=== PATIENT | male | born 1935 | race Caucasian/White ===

== ENCOUNTER 2017-01-30 11:40 | Inpatient (IN) | payer OTHER, MEDICARE ==
[~2017-01-30] VITALS: Ht 180.3 cm; Wt 93.0 kg
[~2017-01-30 11:40] MED LIST: AMLODIPINE BESY10 M1 PO; AMOXIL500 MG PO; AMPICILLIN500 MG PO; CEFAZOLIN SODIUM1 G1 IV; COLACE100 M1 PO; COUMADIN5 M2 PO; FERROUS SULFAT325 M3 PO; FLOMAX(MONOGRA0.4 MG PO; FLOMAX0.4 M1 PO; FUROSEMIDE20 M1 PO; GLUCOPHAGE1000 M1 PO; HYDRODIURIL 2525 MG PO; JANUVIA 100MG100 MG PO; KEFLEX 250MG C250 MG PO; KEFLEX500 MG PO; LASIX20 MG PO; LISINOPRIL10 MG PO; LISINOPRIL20 M1 PO; LISINOPRIL20 MG PO; MASON NATURAL2000 IU PO; METFORMIN1000 MG PO; METOPROLOL SUCC50 M1 PO; METOPROLOL SUCC50 M2 PO; MIRALAX17 G1 PO; MULTI-DAY VITA1 EACH PO; MULTIVITAMINS1 EAC3 PO; NORVASC 5MG TAB5 MG PO; PERCOCET 5-3251 EACH PO; POTASSIUM CHLO20 ME2 PO; PRAVACHOL80 M1 PO; PRAVASTATIN SOD80 MG PO; SENOKOT-S TABL1 EACH PO; STROVITE ONE1 TAB PO; TOPROL XL 100100 MG PO; TRADJENTA5 M1 PO; TRADJENTA5 MG PO; VITAMIN D1000 IU PO; VITAMIN D1000 UNIT PO; XARELTO20 M2 PO; XARELTO20 MG PO
--- NOTE | 2017-01-30 11:43 | NUR ---
INFORMED WAITING PERFORMED.
--- NOTE | 2017-01-30 12:17 | NUR ---
PT TO TRIAGE WITH FEVERS, CHILLS AND PAIN TO LEFT KNEE. PT LEFT GOODMAN AND ANKLE IS +2 EDEMATOUS RIGHT IS TRACE EDEMA. PT DENIES CHEST PAIN.
[2017-01-30 12:46] LABS: ABSOLUTE BASOPHIL COUNT 0 /CUMM (0.0-0.2); ABSOLUTE EOSINOPHIL COUNT 0 /CUMM (0.0-0.7); ABSOLUTE GRANULOCYTE CT 7.6 /CUMM (1.4-6.5); ABSOLUTE LYMPH COUNT 0.2 /CUMM (1.2-3.4); ABSOLUTE MONOCYTE COUNT 0.2 /CUMM (0.10-0.60); BASOPHIL % 0 % (0.0-2.0); EOSINOPHIL % 0 % (0-5); HEMATOCRIT 36.9 % (42-52); MEAN CORPUSCULAR HGB 29.9 PG (27.0-31.0); MEAN CORPUSCULAR HGB CONC 33.7 G/DL (33.0-37.0); MEAN CORPUSCULAR VOLUME 88.7 FL (80.0-94.0); MEAN PLATELET VOLUME 9.8 FL (7.4-10.4); PLATELET COUNT 97 /CUMM (130-400); RBC DISTRIBUTION WIDTH 14.1 % (11.5-14.5); RED BLOOD CELL CT 4.16 /CUMM (4.70-6.10); WHITE BLOOD CELL COUNT 8.1 /CUMM (4.8-10.8)
[2017-01-30 13:07] LABS: GRANULOCYTE % 94.3 % (42.2-75.2)
--- NOTE | 2017-01-30 13:50 | ED UPPER/LOWER EXTREMITY COMPL ---
History of Present Illness General Chief Complaint: General Adult Stated Complaint: SENT BY FOR CELLULITIS Source: patient, family, old records Exam Limitations: no limitations Vital Signs & Intake/Output Vital Signs & Intake/Output Vital Signs Date Time Temp Pulse Resp B/P B/P Pulse O2 O2 Flow FiO2 Mean Ox Delivery Rate 01/31 0608 101.9 88 22 138/72 92 Nasal 3.0L Cannula 01/31 0215 100.4 68 22 118/62 95 Nasal 3.0L Cannula 01/31 0016 92 Nasal 3.0L Cannula 01/31 0000 92 Room Air 01/30 2345 102.9 01/30 2345 102.9 93 33 148/80 91 Nasal 3.0L Cannula 01/30 1914 98.0 82 20 128/64 93 Room Air 01/30 1817 99.8 83 16 107/55 94 Room Air 01/30 1709 101.0 01/30 1708 101.0 96 20 132/87 93 Room Air Room Air 01/30 1527 100.4 94 20 139/58 95 Room Air 01/30 1328 99.7 93 16 113/65 96 Room Air Room Air 01/30 1216 100.3 100 16 102/57 98 Room Air Room Air ED Intake and Output 01/31 0000 01/30 1200 Intake Total 1350 Output Total Balance 1350 Intake, IV 1300 Intake, Oral 50 Patient 205 lb Weight Allergies Coded Allergies: No Known Allergies (01/30/17) Reconcile Medications Amlodipine Besylate (Norvasc) 10 MG TABLET 1 TAB PO DAILY htn (Reported) Cholecalciferol (Vitamin D3) (Vitamin D) 1,000 UNIT TABLET 1 TAB PO DAILY SUPPLEMENT (Reported) Docusate Sodium (Colace) 100 MG CAPSULE 1 CAP PO BID constipation Ferrous Sulfate 325 MG TABLET 1 TAB PO BID anemia available over the counter Furosemide 20 MG TABLET 3 TAB PO QAM DIURETIC (Reported) Linagliptin (Tradjenta) 5 MG TABLET 1 TAB PO DAILY DIABETES (Reported) Lisinopril (Prinivil) 20 MG TABLET 1 TAB PO QPM HTN (Reported) Lisinopril 20 MG TABLET 1 TAB PO QAM BP (Reported) Metformin HCl (Glucophage) 1,000 MG TABLET 1 TAB PO BID GLUCOSE CONTROL ( Reported) Metoprolol Succinate 50 MG TAB.ER.24H 1 TAB PO DAILY HEART/BP (Reported) Multivitamin,Ther and Minerals (Multivitamins With Minerals Hp) 1 EACH CAPSULE 1 CAP PO QAM SUPPLEMENT (Reported) Oxycodone HCl/Acetaminophen (Percocet 5-325 MG Tablet) 1 EACH TABLET 2 TAB PO Q6P PRN PAIN Oxycodone HCl/Acetaminophen (Percocet 5-325 MG Tablet) 1 EACH TABLET 1-2 TAB PO Q4-6 PRN pain Polyethylene Glycol 3350 (Miralax) 17 GM POWD.PACK 1 PAC PO DAILY PRN CONSTIPATION dissolve in water Potassium Chloride 20 MEQ TAB.ER.PRT 1 TAB PO QAM SUPPLEMENT (Reported) Pravastatin Sodium (Pravachol) 80 MG TABLET 1 TAB PO QPM CHOLESTEROL ( Reported) Sennosides/Docusate Sodium (Senokot-S Tablet) 1 EACH TABLET 1 TAB PO BID PRN CONSTIPATION Tamsulosin HCl (Flomax) 0.4 MG CAP.ER.24H 1 CAP PO DAILY PROSTATE (Reported) Triage Note: PT TO TRIAGE WITH FEVERS, CHILLS AND PAIN TO LEFT KNEE. PT LEFT GOODMAN AND ANKLE IS +2 EDEMATOUS RIGHT IS TRACE EDEMA. PT DENIES CHEST PAIN. Triage Nurses Notes Reviewed? yes Onset: Abrupt Duration: hour(s): (few) Timing: single episode today Severity: moderate, severe Pain/Injury Location: Left: Leg, Knee. Method of Injury: none No Modifying Factors: none Associated Symptoms: swelling, FEVER HPI: This is an 82-year-old male history of A. fib, CHF, hypertension, also with history of previous left infected knee presents to the chief complaint of sudden onset of pain in the knee since yesterday. The patient had shaking chills and a fever of 101 at 3 AM this morning. Patient complains of pain from his left knee down. He states symptoms were similar to previous infection in 2016. The patient had a septic arthroplastic joint replaced. Denies any chest pain or shortness of breath. Urine was dark. He was sent by his primary care doctor here to the ER for evaluation and admission. Past History Travel History Traveled to [place] past 21 day No Medical History Any Pertinent Medical History? 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 Hx Contributory? No Review of Systems Review of Systems Constitutional: Reports: chills, fever. EENTM: Reports: no symptoms. Respiratory: Denies: cough, short of breath. Cardiovascular: Denies: chest pain, palpitations. Gastrointestinal/Abdominal: Reports: no symptoms. Genitourinary: Reports: no symptoms. Musculoskeletal: Reports: joint pain. Denies: joint swelling. Skin: Reports: erythema. Neurological/Psychological: Reports: no symptoms. Hematologic/Endocrine: Denies: bruising, bleeding, polyuria, polydipsia. Immunological: Reports: no symptoms. All Other Systems: Reviewed and Negative Physical Exam Physical Exam General Appearance: well developed/nourished, alert, awake, mild distress, moderate distress Head: atraumatic Eyes: Bilateral: PERRL, EOMI. Ears, Nose, Throat: normal pharynx, normal ENT inspection, hearing grossly normal Neck: normal inspection, supple Cardiovascular/Respiratory: regular rate/rhythm Peripheral Pulses: 2+ radial (R), 2+ radial (L) Back: normal inspection Leg Left: swelling, pain, soft tissue tenderness, ERYTHEMA Leg Right: normal range of motion, normal inspection Hip Left: normal range of motion, normal inspection Hip Right: normal range of motion, normal inspection Knee Left: swelling, tenderness Knee Right: normal range of motion, normal inspection Foot Left: normal inspection, normal range of motion Foot Right: normal inspection, normal range of motion Neurologic/Tendon: normal sensation, normal motor functions, normal tendon functions Skin: intact, normal color, warm/dry Lymphatic: no anterior cervical brian ED Sepsis Exam Date of Focused Sepsis Exam: 01/30/17 Time of Focused Sepsis Exam: 1413 Sepsis Cardiac Exam: Tachycardia Sepsis Resp Exam: CTA Sepsis Cap Refill Exam: <2 Sec Sepsis Peripheral Pulse Exam: Normal Sepsis Peripheral Pulse Location: Radial Sepsis Skin Color Exam: Normal for Ethnicity Skin Temp/Moisture Exam: Warm/Dry Progress Differential Diagnosis: cellulitis, septic arthritis Plan of Care: Orders Procedure Date/time Status CBC WITHOUT DIFFERENTIAL 01/31 0600 Active BASIC ELECTROLYTES PLUS BUN&CR 01/31 0600 Active LACTIC ACID 01/31 0225 Complete OXYGEN SETUP (GEN) 01/31 0017 Complete Regular Diet 01/30 D Active TRC EVALUATION (GEN) 01/30 2337 Active LACTIC ACID 01/30 2325 Complete Wound Care/Dressing 01/30 2243 Active LACTIC ACID 01/30 2038 Complete Vital Signs 01/30 1910 Complete Teach/Educate 01/30 1910 Active Pain Treatment and Response 01/30 1910 Active Nutritional Intake, Monitor 01/30 1910 Active Isolation 01/30 1910 Active Intake & Output 01/30 1910 Complete Patient Care Conference 01/30 1910 Active Activity/Ambulation 01/30 1910 Active LACTIC ACID 01/30 1800 Complete Add-on Test (ER Only) 01/30 1722 Active FingerStick- Glucose 01/30 1709 Active SYNOVIAL FLUID CELL COUNT 01/30 1644 Active CULTURE,BODY FLUID 01/30 1640 Active Code Status 01/30 1553 Active LACTIC ACID 01/30 1521 Complete Pathway - chart 01/30 1457 Active Patient Data 01/30 1457 Active Admit to inpatient 01/30 1454 Active Vital Signs 01/30 1454 Active Code Status 01/30 1454 Complete Intake & Output 01/30 1419 Active EKG 01/30 1401 Active Add-on Test (ER Only) 01/30 1302 Active BLOOD CULTURE 01/30 1302 Active WESTERGREN SED RATE 01/30 1302 Complete PROTHROMBIN TIME 01/30 1235 Complete C-REACTIVE PROTEIN 01/30 1235 Complete LACTIC ACID 01/30 1221 Complete COMPREHENSIVE METABOLIC PANEL 01/30 1218 Complete CBC WITHOUT DIFFERENTIAL 01/30 1218 Complete House Staff 01/30 UNK Active Lab Add-on Test 01/30 UNK Active VTE Mechanical Prophylaxis 01/30 UNK Active Vital Signs 01/30 UNK Complete Current Medications Sig/Willi Start time Last Medication Dose Stop Time Status Admin Amlodipine Besylate 10 MG QAM 01/31 1000 CAN (Norvasc) Amlodipine Besylate 10 MG DAILY 01/31 1000 AC (Norvasc) Cholecalciferol 1,000 IU DAILY 01/31 1000 AC (Vitamin D) Furosemide 60 MG QAM 01/31 1000 AC (Lasix) Lisinopril 40 MG DAILY 01/31 1000 AC (Prinivil) Metoprolol Succinate 50 MG DAILY 01/31 1000 AC (Toprol Xl) Pravastatin Sodium 80 MG DAILY 01/31 1000 AC (Pravachol) Tamsulosin HCl 0.4 MG DAILY 01/31 1000 AC (Flomax) Apixaban 2.5 MG BID 01/30 2200 AC 01/30 (Eliquis) 223 Docusate Sodium 100 MG BID 01/30 2200 AC 01/30 (Colace) 223 Ferrous Sulfate 325 MG BID 01/300 AC 01/30 (Feosol) 223 Vancomycin HCl 1,500 MG 01/30 AC 01/30 Sodium Chloride 250 ML 223 (Normal Saline 0.9%) Ampicillin Sodium/ 3,000 MG Q6H 01/30 2100 CAN Sulbactam Sodium (Unasyn) Sodium Chloride 100 ML (Normal Saline 0.9%) Oxycodone/ 1 TAB Q6P PRN 01/30 2030 AC 01/30 Acetaminophen 2025 (Percocet) Sodium Chloride 1,000 ML Q10H 01/30 1745 AC 01/30 (Normal Saline 0.9%) 195 Insulin Aspart 0 TIDAC 01/30 1700 AC 01/30 (NovoLOG) 1815 Acetaminophen 650 MG Q6P PRN 01/30 1500 AC (Tylenol) Acetaminophen 1,000 MG Q6P PRN 01/30 1500 AC 01/30 (Ofirmev) 2345 Laboratory Tests 01/31/17 0220: Lactic Acid 1.5 01/30/17 2330: Lactic Acid 2.5 H 01/30/17 2024: Lactic Acid 3.6 H 01/30/17 1855: Lactic Acid 3.4 H 01/30/17 1644: Lymphocytes 1, % Normal PMNs 96, Fluid WBC , Fld Total RBCs Counted 01/30/17 1534: Lactic Acid 4.2 H 01/30/17 1337: ESR Westergren 9 01/30/17 1235: Lactic Acid 2.8 H 01/30/17 1235: Anion Gap 13, Estimated GFR > 60, BUN/Creatinine Ratio 23.6, Glucose 148 H, Calcium 9.0, Total Bilirubin 1.5 H, AST 26, ALT 33, Alkaline Phosphatase 44, C- Reactive Prot, Quant 3.8 H, Total Protein 6.5, Albumin 4.0, Globulin 2.5, Albumin/Globulin Ratio 1.6, PT 12.8 H, INR 1.22 H, CBC w Diff MAN DIFF ORDERED , RBC 4.16 L, MCV 88.7, MCH 29.9, RDW 14.1, MPV 9.8, Gran % 94.3 H, Lymphocytes % 3.1 L, Monocytes % 2.6, Eosinophils % 0, Basophils % 0 L, Absolute Granulocytes 7.6 H, Segmented Neutrophils 74, Band Neutrophils 18 H, Absolute Lymphocytes 0.2 L, Lymphocytes 5 L, Monocytes 3, Absolute Monocytes 0.2, Absolute Eosinophils 0, Absolute Basophils 0, Platelet Estimate DECREASED, Hypochromic-Microcytic 2+, Poikilocytosis 1+, Anisocytosis 1+, Ovalocytes 1+, PUBS MCHC 33.7 Microbiology 01/30 1643 BODY FLUID: Body Fluid Culture - RES 01/30 1643 BODY FLUID: Gram Stain - RES 01/30 1426 BLOOD: Blood Culture - RECD 01/30 1337 BLOOD: Blood Culture - RECD 2 PM IV ABX, FLUIDS, MORPHINE ORDERED. LABS SENT IN TRIAGE. ELEVATED LACTIC. DR JEFFERY PAGED FOR CONSULT. MAY NEED ARTHROCENTESISI. ARTHROCENTESIS PERFORMED. PATIENT ADMITTED TO MEDICAL SERVICE. ORTHOPEDIC CONSULTATION PENDING. (PHILIPP ODELL,JORDANA) Departure Departure Disposition: STILL A PATIENT Condition: Stable Clinical Impression Primary Impression: Left leg cellulitis Referrals: KATHY AMAYA DO (PCP/Family) Departure Forms: Customer Survey General Discharge Information Admission Note Spoke With: RUFINA JIMENEZ MD Documentation of Exam: Documentation of any treatments & extenuating circumstances including Concerns Regarding Discharge (functional status, medication knowledge or non-compliance, living conditions, etc.) that warrant an admission rather than observation: [IV ABS, PAIN CONTROL, F/U BLOOD AND ARTHROCENTESIS CULTURES, ORTHOPEID CONSULT DR JEFFERY CALLED] Procedures Additional Procedures Additional Procedures: LEFT KNEE ARTHROCENTESIS 2 ML LIDOCAINE WITH EPI FOR ANESTHESIA 6 CC MURKY/TURBID FLUID ASPIRATED FROM LATERAL SUPERIOR BORDER OF PATELLA PATIENT TOLERATED PROCEDURE WELL
--- NOTE | 2017-01-30 14:04 | NUR ---
EVALUATED BY DR. SEGAL.
--- NOTE | 2017-01-30 14:23 | NUR ---
LINE EST #20 TO [facility]. NS BOLUS HUNG AND PT MEDICATED PER EMAR.
--- NOTE | 2017-01-30 14:29 | NUR ---
2ND SET OF BLOOD CULTURES DRAWN AND SENT TO THE LAB
--- NOTE | 2017-01-30 15:26 | History & Physical ---
TERRY FINCH MD 01/30/17 1525: General Information and HPI MD Statement: I have seen and personally examined FEMI HOWELL and documented this H&P. The patient is a 82 year old M who presented with a patient stated chief complaint of [fed by the primary-care physician for cellulitisr]. History of Present Illness: This is an 82-year-old diabetic man with atrial fibrillation, maintained on eLIQUIS, status post left knee replacement 2.5 YEARS prior to admission, right knee replacement 3 years, status post left knee septic arthritis in January 2016, and at that time was treated with 6 weeks of cefazolin, with replacement of prosthetic joint and antibiotic spacer placement which was later removed and replaced with new prosthetic joint, History of recurrent cellulitis, over the past 4-5 years, usually involving the left leg leg, with Group B strep isolated from the blood on a previous hospitalization in 2014 , at which time he had a left leg cellulitis in the setting of a recent venous closure,. The patient was doing fine until last night at around 3 AM he started having shakes and chills and rigors. He went to see his primary care physician and was seen by the on-call doctor who recommended to come to the emergency department for further evaluation. The patient noticed that his left leg is more swollen and is read as compared to the right side is mostly in the cuevas area. The patient also noticed that he had more swelling on his left knee.He denies any changes in joint mobility . No H/o recent trauma or any recent travels or camping or travel to [facility].He saw Jamar Whiteside MD, his regular orthopedics 2 weeks prior coming to the emergency department who did not have any recommendations. Allergies/Medications Allergies: Coded Allergies: No Known Allergies (01/30/17) Home Med list Amlodipine Besylate (Norvasc) 10 MG TABLET 1 TAB PO DAILY htn (Reported) Cholecalciferol (Vitamin D3) (Vitamin D) 1,000 UNIT TABLET 1 TAB PO DAILY SUPPLEMENT (Reported) Docusate Sodium (Colace) 100 MG CAPSULE 1 CAP PO BID constipation Ferrous Sulfate 325 MG TABLET 1 TAB PO BID anemia available over the counter Furosemide 20 MG TABLET 3 TAB PO QAM DIURETIC (Reported) Linagliptin (Tradjenta) 5 MG TABLET 1 TAB PO DAILY DIABETES (Reported) Lisinopril (Prinivil) 20 MG TABLET 1 TAB PO QPM HTN (Reported) Lisinopril 20 MG TABLET 1 TAB PO QAM BP (Reported) Metformin HCl (Glucophage) 1,000 MG TABLET 1 TAB PO BID GLUCOSE CONTROL ( Reported) Metoprolol Succinate 50 MG TAB.ER.24H 1 TAB PO DAILY HEART/BP (Reported) Multivitamin,Ther and Minerals (Multivitamins With Minerals Hp) 1 EACH CAPSULE 1 CAP PO QAM SUPPLEMENT (Reported) Oxycodone HCl/Acetaminophen (Percocet 5-325 MG Tablet) 1 EACH TABLET 2 TAB PO Q6P PRN PAIN Oxycodone HCl/Acetaminophen (Percocet 5-325 MG Tablet) 1 EACH TABLET 1-2 TAB PO Q4-6 PRN pain Polyethylene Glycol 3350 (Miralax) 17 GM POWD.PACK 1 PAC PO DAILY PRN CONSTIPATION dissolve in water Potassium Chloride 20 MEQ TAB.ER.PRT 1 TAB PO QAM SUPPLEMENT (Reported) Pravastatin Sodium (Pravachol) 80 MG TABLET 1 TAB PO QPM CHOLESTEROL ( Reported) Sennosides/Docusate Sodium (Senokot-S Tablet) 1 EACH TABLET 1 TAB PO BID PRN CONSTIPATION Tamsulosin HCl (Flomax) 0.4 MG CAP.ER.24H 1 CAP PO DAILY PROSTATE (Reported) Past History Travel History Traveled to [place] past 21 day No Medical History Neurological: NONE EENT: NONE Cardiovascular: AFIB, CHF, hypertension, hyperlipidemia Respiratory: NONE Gastrointestinal: NONE Hepatic: NONE Renal: benign prost hyperplasia, nephrolithiasis Musculoskeletal: CELLULITISof right leg 4 times, last one was in August 2014 Psychiatric: NONE Endocrine: diabetes Blood Disorders: NONE Cancer(s): melanoma, (REMOVED) 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 Other Medical Hx: Psoriasis History of MRSA: No History of VRE: No History of CDIFF: No Pneumonia Vaccine: 06/20/15 Surgical History Surgical History: 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 Psychosocial History Who Do You Live With? self Services at Home: None Primary Language: Ivorian ETOH Use: denies use Illicit Drug Use: denies illicit drug use Functional Ability ADLs Independent: dressing, eating, toileting, bathing. Ambulation: independent IADLs Independent: shopping, housework, finances, food prep, telephone, transportation , medication admin. Review of Systems Review of Systems Constitutional: Reports: see HPI. EENTM: Reports: see HPI. Musculoskeletal: Reports: see HPI, joint pain, joint swelling. Denies: muscle stiffness, neck pain. Skin: Reports: rash. Neurological/Psychological: Reports: anxiety. Hematologic/Endocrine: Reports: see HPI, bruising. Exam & Diagnostic Data Last 24 Hrs of Vital Signs/I&O Vital Signs Date Time Temp Pulse Resp B/P B/P Pulse O2 O2 Flow FiO2 Mean Ox Delivery Rate 01/30 1527 100.4 94 20 139/58 95 Room Air 01/30 1328 99.7 93 16 113/65 96 Room Air Room Air 01/30 1216 100.3 100 16 102/57 98 Room Air Room Air Intake & Output 01/30 1600 01/30 0800 01/30 0000 Intake Total 1000 Output Total Balance 1000 Intake, IV 1000 Patient 205 lb Weight Physical Exam General Appearance Alert, Oriented X3, Cooperative, No Acute Distress Skin No Rashes, No Breakdown, REDNESS AND SWELLING IN THE LEFT CUEVAS Skin Temp/Moisture Exam: Warm/Dry Lymphatic Axillary nl, Cervical nl Cardiovascular Normal S1, Normal S2 Lungs Clear to Auscultation, Normal Air Movement Abdomen Normal Bowel Sounds, Soft, No Tenderness Neurological Normal Gait, Normal Speech, Strength at 5/5 X4 Ext Extremities LEFT LOWER SWELLING AND REDNESS, left knee swelling and warmth. Vascular Normal Pulses, Pulses Symmetrical Sepsis Peripheral Pulse Location: Dorsalis Pedis Sepsis Peripheral Pulse Exam: Normal Sepsis Cap Refill Exam: <2 Sec Body Front and Back (Adult) 1) LEFT CUEVAS SWELLING AND REDNESS 2) LWFT LEG SWELIING Assessment/Plan Assessment: Is an 82-year-old male with a past medical history of recurrent left leg cellulitis, with most recent episode 9 months prior to admission, status post venous closure of the left leg status post left knee arthroplasty and septic arthritis status post long-term antibiotics course and joint replacement in 2015 now admitted with recurrent cellulitis . Initial temperature of 100.4, blood pressure 113/65, saturation of 96% on room air, heart rate of 100, respiration rate of 16 WBC of 8.1, (band of 18 )hemoglobin of 12.4 hematocrit of 36.9,Low platelets of 96 lactic acid of 2.8, creatinine 1.1, EKG shows atrial fibrillation with normal ventriculULAR RESPONSE3 Assessment 1. Sepsis secondary to cellulitis 2. Recurrent cellulitis of the left leg, with suspicion of left septic arthritis considering increased swelling of the left knee. The patient had normal movement at the knee joint. He also exhibited normal pulses peripherally.Septic arthritis is very likely in this case. Prosthetic joint infection is promoted by the development of a biofilm ( coalescence of bacteria) on the artificial joint surface; biofilms are resistant to treatment both because of lack of perfusion and because biofilm bacteria develop antimicrobial resistance as a consequence of their limited exposure to treatment agents. MRSA and GBHS are likely the causatve organisms. 3. History of atrial fibrillation on Eliquis and metoprolol 4. History of [id number] diabetes mellitus(metformin and Janument) 5. Previous history of septic arthritis 6.Thrmobocytopenia -likely secondary infectious. Plan Admit the patient to general medicine floor Do a arthrocentesis of the left knee(i.e. marisabel Whiteside MD she is in the middle of the surgery (no eleiquis dose today in am). I am worried about recurrent left knee arthritis as the drained fluid from arthrocentesis was purulent in nature. Unfortunately the patient already received 1 dose of IV Unasyn, Continue with IV fluids NS a@ 100 cc/hr Can Continue with IV unasyn but ideally also need coverage for MRSA and as the patient previous culture in May 2015 GREW GBS.Consider switching to Vancmycin and will discuss with ID. The patient ideally needs joint wash out like last admission.(dr Aguilarinformed ) Continue with other home medications but will HOLD Eliquis until arthrocentesis and also hold BP meds until more stable in the am. NovoLog SLIDING scale for diabetes control and accu checks Leg elevation ID consult in the morning( I already spoke to Dr Yoder in the ER but will officilay consult him in am) DVT prophylaxis at all times with Eliquis once a arthrocentesis done DNR/DNI As Ranked By This Provider Problem List: 1. Left leg cellulitis Core Measures/Miscellaneous Acute Coronary Syndrome ACS Diagnosis: No Cerebrovascular Accident CVA/TIA Diagnosis: No Congestive Heart Failure CHF Diagnosis: No Venous Thromboembolism VTE Risk Factors: Acute medical illness, Age > 40 No [facility] VTE prophylaxis d/t: VTE low risk, No contraindications No VTE Pharm Prophylaxis d/t: VTE low risk, No contraindications VTE Diagnosis: No VTE Type: NONE VTE Confirmed by (Test): NONE Severe Sepsis Severe Sepsis Present: Yes BC x2: Yes Lactic Acid x2: Yes IV ABX Broad Spectrum: Yes NS/LR Started: Yes Septic Shock Septic Shock Present: No Miscellaneous Documentation Attending Case Discussed With: RUFINA JIMENEZ MD Primary Care Physician: KATHY AMAYA DO Patient sees these Specialists dr torres Level of Patient Care: General Medicine RUFINA JIMENEZ MD 01/30/172021: Attending MD Review Statement Attending Statement Attending MD Statement: examined this patient, discuss w/resident/PA/SAW MAKER, agreed w/resident/PA/SAW MAKER, reviewed EMR data (avail) Attending Assessment/Plan: 82M PMH atrial fibrillation on Eliquis, left knee replacement 2.5 YEARS prior to admission, right knee replacement 3 years ago, status post left knee septic arthritis in January 2016, and at that time was treated with 6 weeks of cefazolin, with replacement of prosthetic joint and antibiotic spacer placement which was later removed and replaced with new prosthetic joint with cultures growing Group B streptococcous, presents with left lower extremity cellulitis with edema, erythema, and pain extending up to left knee. Left knee arthrocentesis performed in ED returning milky white fluid. Febrile 101, normal BP, normal WBC , lactate 2.8. Patient has no complaints other than mild LLE discomfort. Plan - Admit to general medicine - Start Unasyn - Follow arthrocentesis culture and blood cultures - Orthopedic and ID consults - Continue home medications - IV hydration - Trend lactate until normal - Monitor fluid status - DVT PPx
[2017-01-30 15:55] LABS: PT 12.8 SEC (9.4-12.5)
[2017-01-30] MEDS ORDERED: NORVASC10 M1 PO (16:14)
[2017-01-30] MEDS ORDERED: PRINIVIL20 M1 PO (16:15)
--- NOTE | 2017-01-30 16:36 | NUR ---
BED 203
--- NOTE | 2017-01-30 16:46 | NUR ---
ATTEMPTED TO GIVE REPORT TO RN, UNABLE TO TAKE REPORT AT THIS TIME.
--- NOTE | 2017-01-30 16:57 | NUR ---
CRITICAL TEST RESULTS [id number] FEMI HOWELL S 82 M TESTS AND RESULTS: LACTIC 4.2 Results received and read back by: DEBBIE SHEA Results received date and time: 01/30/17 8030 The following provider was notified of the results, and read the results back: AMADO IN ROOM WITH PT Notified date and time: 01/30/17 at
--- NOTE | 2017-01-30 17:12 | NUR ---
DINNER TRAY ORDERED.
--- NOTE | 2017-01-30 17:59 | Cons- Orthopedic ---
General Information and HPI Consulting Request Date of Consult: 01/30/17 Requested By: RUFINA JIMENEZ MD Reason for Consult: Left leg pain and swelling Source of Information: patient, family Exam Limitations: no limitations History of Present Illness: Patient is an 82-year-old man who has a history of a left total knee arthroplasty done by Dr. Pinto several years ago. Unfortunately a proximally one year ago he developed a septic joint and had to have total knee arthroplasty explantation followed by antibiotic cement spacer and following reimplantation by myself. Patient had been doing fairly well overall but last night he developed swelling and pain in his left lower extremity including the left knee. He also developed fevers. He was brought to the emergency room and had evaluation. Aspiration of the knee was done patient also received antibiotics in the emergency room. Allergies/Medications Allergies: Coded Allergies: No Known Allergies (01/30/17) Home Med List: Amlodipine Besylate (Norvasc) 10 MG TABLET 1 TAB PO DAILY htn (Reported) Cholecalciferol (Vitamin D3) (Vitamin D) 1,000 UNIT TABLET 1 TAB PO DAILY SUPPLEMENT (Reported) Docusate Sodium (Colace) 100 MG CAPSULE 1 CAP PO BID constipation Ferrous Sulfate 325 MG TABLET 1 TAB PO BID anemia available over the counter Furosemide 20 MG TABLET 3 TAB PO QAM DIURETIC (Reported) Linagliptin (Tradjenta) 5 MG TABLET 1 TAB PO DAILY DIABETES (Reported) Lisinopril (Prinivil) 20 MG TABLET 1 TAB PO QPM HTN (Reported) Lisinopril 20 MG TABLET 1 TAB PO QAM BP (Reported) Metformin HCl (Glucophage) 1,000 MG TABLET 1 TAB PO BID GLUCOSE CONTROL ( Reported) Metoprolol Succinate 50 MG TAB.ER.24H 1 TAB PO DAILY HEART/BP (Reported) Multivitamin,Ther and Minerals (Multivitamins With Minerals Hp) 1 EACH CAPSULE 1 CAP PO QAM SUPPLEMENT (Reported) Oxycodone HCl/Acetaminophen (Percocet 5-325 MG Tablet) 1 EACH TABLET 2 TAB PO Q6P PRN PAIN Oxycodone HCl/Acetaminophen (Percocet 5-325 MG Tablet) 1 EACH TABLET 1-2 TAB PO Q4-6 PRN pain Polyethylene Glycol 3350 (Miralax) 17 GM POWD.PACK 1 PAC PO DAILY PRN CONSTIPATION dissolve in water Potassium Chloride 20 MEQ TAB.ER.PRT 1 TAB PO QAM SUPPLEMENT (Reported) Pravastatin Sodium (Pravachol) 80 MG TABLET 1 TAB PO QPM CHOLESTEROL ( Reported) Sennosides/Docusate Sodium (Senokot-S Tablet) 1 EACH TABLET 1 TAB PO BID PRN CONSTIPATION Tamsulosin HCl (Flomax) 0.4 MG CAP.ER.24H 1 CAP PO DAILY PROSTATE (Reported) Past History Medical History Neurological: NONE EENT: NONE Cardiovascular: AFIB, CHF, hypertension, hyperlipidemia Respiratory: NONE Gastrointestinal: NONE Hepatic: NONE Renal: benign prost hyperplasia, nephrolithiasis Musculoskeletal: CELLULITISof right leg 4 times, last one was in August 2014 Psychiatric: NONE Endocrine: diabetes Blood Disorders: NONE Cancer(s): melanoma, (REMOVED) 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 Psychosocial History Who Do You Live With? self Services at Home: None Primary Language: Bolivian ETOH Use: denies use Illicit Drug Use: denies illicit drug use Functional Ability ADLs Independent: dressing, eating, toileting, bathing. Ambulation: independent IADLs Independent: shopping, housework, finances, food prep, telephone, transportation , medication admin. Exam & Diagnostic Data Vital Signs and I&O Vital Signs Date Time Temp Pulse Resp B/P B/P Pulse O2 O2 Flow FiO2 Mean Ox Delivery Rate 01/30 1709 101.0 01/30 1708 101.0 96 20 132/87 93 Room Air Room Air 01/30 1527 100.4 94 20 139/58 95 Room Air 01/30 1328 99.7 93 16 113/65 96 Room Air Room Air 01/30 1216 100.3 100 16 102/57 98 Room Air Room Air Intake & Output 01/30 1600 01/30 0800 01/30 0000 01/29 1600 01/29 0800 01/29 0000 Intake Total 1000 Output Total Balance 1000 Intake, IV 1000 Patient 205 lb Weight Physical Exam: Patient is alert and appropriate. He has moderate leg swelling and erythema along the lateral aspect of his calf and lower extremity. His left lower extremity is warm to touch including his knee. Moderate knee effusion. No instability. Calf exam revealed no palpable cords. Pulses are palpable distally and symmetric. Neuro intact grossly Last 24 Hours of Labs: Laboratory Tests 01/30 01/30 01/30 01/30 1644 1534 1337 1235 Chemistry Lactic Acid (0.7 - 2.1 mmol/L) 4.2 H 2.8 H Hematology Lymphocytes (%) 1 % Normal PMNs (%) 96 ESR Westergren (0 - 10 MM) 9 Other Body Source Fluid WBC (0 - 5 /CUMM) Fld Total RBCs Counted (0 /CUMM) 01/30 1235 Chemistry Sodium (137 - 145 mmol/L) 136 L Potassium (3.5 - 5.1 mmol/L) 3.7 Chloride (98 - 107 mmol/L) 102 Carbon Dioxide (22 - 30 mmol/L) 21 L Anion Gap (5 - 16) 13 BUN (9 - 20 mg/dL) 26 H Creatinine (0.7 - 1.2 mg/dL) 1.1 Estimated GFR (>60 ml/min) > 60 BUN/Creatinine Ratio (7 - 25 %) 23.6 Glucose (65 - 99 mg/dL) 148 H Calcium (8.4 - 10.2 mg/dL) 9.0 Total Bilirubin (0.2 - 1.3 mg/dL) 1.5 H AST (17 - 59 U/L) 26 ALT (21 - 72 U/L) 33 Alkaline Phosphatase (< 127 U/L) 44 C-Reactive Prot, Quant (<1.0 mg/dL) 3.8 H Total Protein (6.3 - 8.2 g/dL) 6.5 Albumin (3.5 - 5.0 g/dL) 4.0 Globulin (1.9 - 4.2 gm/dL) 2.5 Albumin/Globulin Ratio (1.1 - 2.2 %) 1.6 Coagulation PT (9.4 - 12.5 SEC) 12.8 H INR (0.90 - 1.17) 1.22 H Hematology CBC w Diff MAN DIFF ORDERED WBC (4.8 - 10.8 /CUMM) 8.1 RBC (4.70 - 6.10 /CUMM) 4.16 L Hgb (14.0 - 18.0 G/DL) 12.4 L Hct (42 - 52 %) 36.9 L MCV (80.0 - 94.0 FL) 88.7 MCH (27.0 - 31.0 PG) 29.9 RDW (11.5 - 14.5 %) 14.1 Plt Count (130 - 400 /CUMM) 97 L MPV (7.4 - 10.4 FL) 9.8 Gran % (42.2 - 75.2 %) 94.3 H Lymphocytes % (20.5 - 51.1 %) 3.1 L Monocytes % (1.7 - 9.3 %) 2.6 Eosinophils % (0 - 5 %) 0 Basophils % (0.0 - 2.0 %) 0 L Absolute Granulocytes (1.4 - 6.5 /CUMM) 7.6 H Segmented Neutrophils (42.2 - 75.2 %) 74 Band Neutrophils (0.0 - 5.0 %) 18 H Absolute Lymphocytes (1.2 - 3.4 /CUMM) 0.2 L Lymphocytes (20.5 - 51.1 %) 5 L Monocytes (1.7 - 9.3 %) 3 Absolute Monocytes (0.10 - 0.60 /CUMM) 0.2 Absolute Eosinophils (0.0 - 0.7 /CUMM) 0 Absolute Basophils (0.0 - 0.2 /CUMM) 0 Platelet Estimate (ADEQUATE) DECREASED Hypochromic-Microcytic 2+ Poikilocytosis 1+ Anisocytosis 1+ Ovalocytes 1+ PUBS MCHC (33.0 - 37.0 G/DL) 33.7 Assessment/Plan Assessment/Plan Cellulitis left lower extremity/possible recurrent septic joint. We will await the results from the aspiration and then proceed accordingly. Patient already started on Unasyn. Discussed with resident and with attending in the emergency room- Consult Acknowledgment - Thank you for your consult request. 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
--- NOTE | 2017-01-30 18:18 | NUR ---
MEDICATED WITH INSULIN AND DILAUDID PER eMAR AND VSS, TEMP IMPROVING AT 99.8
[2017-01-30 19:14] VITALS: BP 128/64
--- NOTE | 2017-01-30 19:59 | NUR ---
PT ADMITTED TO FLOOR VIA STRETHCER, ORIENTED TO ROOM, CALL REEDER, STAFF ETC. ALERT AND ORIENTED X 3. RA. LCTA. REDNESS, WARMTH, SWELLING TO LEFT LEG. + PEDAL PULSES. VSS. FLUIDS RUNNING ORDERED. FAMILY AT BEDSIDE. WILL CONITNUE TO MONITOR.
--- NOTE | 2017-01-30 20:24 | Admission Certification ---
Admission Certification Certification Statement - As attending physician, I certify that at the time of - admission, based on clinical presentation, severity of - symptoms, need for further diagnostic testing and - therapeutic interventions, and risk of adverse outcomes - without in-hospital treatment, in my clinical assessment, - this patient requires an acute hospital stay for a minimum - of two nights or longer. I have also considered psychsocial - factors such as support system, advanced age, financial - issues, cognitive issues, and failed out-patient treatments, - past re-admission history, safety of patient, and lack of - compliance as applicable. Specific rationale supporting this admission is: Septic arthritis of left knee with severe sepsis
--- NOTE | 2017-01-30 20:46 | Cons- Infect Disease ---
General Information and HPI Consulting Request Date of Consult: 01/30/17 Requested By: RUFINA JIMENEZ MD Reason for Consult: Rule out septic left knee prosthesis Source of Information: patient, family, old records History of Present Illness: This is an 82-year-old man with diabetes, atrial fibrillation, maintained on Eliquis, CHF, BPH, nephrolithiasis, with a history of recurrent cellulitis over the past 5 years, typically involving the right leg, with beta-hemolytic strep sepsis on several occasions, status post bilateral knee replacements, hospitalized one year prior to admission with an infected left knee prosthesis, requiring removal, with cultures negative, treated empirically with Cefazolin for 6 weeks, with replacement of the prosthesis 1 week later, with Vancomycin prophylaxis, status post left knee arthrocentesis 4 months postop because of swelling, with cell count revealing 4 white blood cells and with culture negative, treated with a ten-day course of Keflex with improvement, admitted today after presenting to the emergency room with the acute onset of fevers and chills overnight and pain and swelling of the left knee this morning. On admission he was febrile to 100.3. Laboratory data revealed a white blood cell count of 8000, with 74 segs and 18 bands, platelets 97,000, ESR 9, BUN/ creatinine 26 and 1.1, bilirubin 1.5, INR 1.22. He underwent a left knee arthrocentesis, which revealed cloudy fluid, which, unfortunately, clotted, preventing the lab from performing a cell count. The gram stain, however, reveals rare gram-positive cocci. This afternoon he spiked to 101. At present he notes some discomfort in the left knee. Allergies/Medications Allergies: Coded Allergies: No Known Allergies (01/30/17) Home Med List: Amlodipine Besylate (Norvasc) 10 MG TABLET 1 TAB PO DAILY htn (Reported) Cholecalciferol (Vitamin D3) (Vitamin D) 1,000 UNIT TABLET 1 TAB PO DAILY SUPPLEMENT (Reported) Docusate Sodium (Colace) 100 MG CAPSULE 1 CAP PO BID constipation Ferrous Sulfate 325 MG TABLET 1 TAB PO BID anemia available over the counter Furosemide 20 MG TABLET 3 TAB PO QAM DIURETIC (Reported) Linagliptin (Tradjenta) 5 MG TABLET 1 TAB PO DAILY DIABETES (Reported) Lisinopril (Prinivil) 20 MG TABLET 1 TAB PO QPM HTN (Reported) Lisinopril 20 MG TABLET 1 TAB PO QAM BP (Reported) Metformin HCl (Glucophage) 1,000 MG TABLET 1 TAB PO BID GLUCOSE CONTROL ( Reported) Metoprolol Succinate 50 MG TAB.ER.24H 1 TAB PO DAILY HEART/BP (Reported) Multivitamin,Ther and Minerals (Multivitamins With Minerals Hp) 1 EACH CAPSULE 1 CAP PO QAM SUPPLEMENT (Reported) Oxycodone HCl/Acetaminophen (Percocet 5-325 MG Tablet) 1 EACH TABLET 2 TAB PO Q6P PRN PAIN Oxycodone HCl/Acetaminophen (Percocet 5-325 MG Tablet) 1 EACH TABLET 1-2 TAB PO Q4-6 PRN pain Polyethylene Glycol 3350 (Miralax) 17 GM POWD.PACK 1 PAC PO DAILY PRN CONSTIPATION dissolve in water Potassium Chloride 20 MEQ TAB.ER.PRT 1 TAB PO QAM SUPPLEMENT (Reported) Pravastatin Sodium (Pravachol) 80 MG TABLET 1 TAB PO QPM CHOLESTEROL ( Reported) Sennosides/Docusate Sodium (Senokot-S Tablet) 1 EACH TABLET 1 TAB PO BID PRN CONSTIPATION Tamsulosin HCl (Flomax) 0.4 MG CAP.ER.24H 1 CAP PO DAILY PROSTATE (Reported) Past History Travel History Traveled to [place] past 21 day No Medical History Neurological: NONE EENT: NONE Cardiovascular: AFIB, CHF, hypertension, hyperlipidemia Respiratory: NONE Gastrointestinal: NONE Hepatic: NONE Renal: benign prost hyperplasia, nephrolithiasis Musculoskeletal: CELLULITIS of right leg 4 times, last one was in August 2014 Psychiatric: NONE Endocrine: diabetes Blood Disorders: NONE Cancer(s): melanoma, (REMOVED) 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 Psychosocial History Who Do You Live With? self Services at Home: None Primary Language: Upper Sorbian Smoking Status: Never Smoked ETOH Use: denies use Illicit Drug Use: denies illicit drug use Functional Ability ADLs Independent: dressing, eating, toileting, bathing. Ambulation: independent IADLs Independent: shopping, housework, finances, food prep, telephone, transportation , medication admin. ECHO Results (as available) EF% 55 Review of Systems Review of Systems Respiratory: Reports: cough (today). All Other Systems: Reviewed and Negative Exam & Diagnostic Data Last 24 Hrs of Vital Signs/I&O Vital Signs Date Time Temp Pulse Resp B/P B/P Pulse O2 O2 Flow FiO2 Mean Ox Delivery Rate 01/30 1914 98.0 82 20 128/64 93 Room Air 01/30 1817 99.8 83 16 107/55 94 Room Air 01/30 1709 101.0 01/30 1708 101.0 96 20 132/87 93 Room Air Room Air 01/30 1527 100.4 94 20 139/58 95 Room Air 01/30 1328 99.7 93 16 113/65 96 Room Air Room Air 01/30 1216 100.3 100 16 102/57 98 Room Air Room Air Intake & Output 01/30 1600 01/30 0800 01/30 0000 Intake Total 1000 Output Total Balance 1000 Intake, IV 1000 Patient 205 lb Weight Physical Exam Other Physical Findings: He is awake and alert in no acute distress. MAXIMUM TEMPERATURE 101. Skin reveals no rash. HEENT exam is negative. Neck is supple with no adenopathy. Lungs are clear. Heart irregular rhythm with no murmur. Abdomen is soft, nontender with positive bowel sounds. Back no CVA tenderness. Extremities left knee swelling, warmth and mild tenderness, with decreased range of motion and with fluid draining from the recent site of the arthrocentesis; erythema below the left knee to the ankle, warm to touch with mild swelling; right leg with chronic venous stasis changes. Neuro is without focality. Last 24 Hours of Lab Results: Laboratory Tests 01/30 1855 1644 1534 1337 Chemistry Lactic Acid (0.7 - 2.1 mmol/L) Pending 3.4 H 4.2 H Hematology Lymphocytes (%) 1 % Normal PMNs (%) 96 ESR Westergren (0 - 10 MM) 9 Other Body Source Fluid WBC (0 - 5 /CUMM) Fld Total RBCs Counted (0 /CUMM) 01/30 01/30 1235 1235 Chemistry Sodium (137 - 145 mmol/L) 136 L Potassium (3.5 - 5.1 mmol/L) 3.7 Chloride (98 - 107 mmol/L) 102 Carbon Dioxide (22 - 30 mmol/L) 21 L Anion Gap (5 - 16) 13 BUN (9 - 20 mg/dL) 26 H Creatinine (0.7 - 1.2 mg/dL) 1.1 Estimated GFR (>60 ml/min) > 60 BUN/Creatinine Ratio (7 - 25 %) 23.6 Glucose (65 - 99 mg/dL) 148 H Lactic Acid (0.7 - 2.1 mmol/L) 2.8 H Calcium (8.4 - 10.2 mg/dL) 9.0 Total Bilirubin (0.2 - 1.3 mg/dL) 1.5 H AST (17 - 59 U/L) 26 ALT (21 - 72 U/L) 33 Alkaline Phosphatase (< 127 U/L) 44 C-Reactive Prot, Quant (<1.0 mg/dL) 3.8 H Total Protein (6.3 - 8.2 g/dL) 6.5 Albumin (3.5 - 5.0 g/dL) 4.0 Globulin (1.9 - 4.2 gm/dL) 2.5 Albumin/Globulin Ratio (1.1 - 2.2 %) 1.6 Coagulation PT (9.4 - 12.5 SEC) 12.8 H INR (0.90 - 1.17) 1.22 H Hematology CBC w Diff MAN DIFF ORDERED WBC (4.8 - 10.8 /CUMM) 8.1 RBC (4.70 - 6.10 /CUMM) 4.16 L Hgb (14.0 - 18.0 G/DL) 12.4 L Hct (42 - 52 %) 36.9 L MCV (80.0 - 94.0 FL) 88.7 MCH (27.0 - 31.0 PG) 29.9 RDW (11.5 - 14.5 %) 14.1 Plt Count (130 - 400 /CUMM) 97 L MPV (7.4 - 10.4 FL) 9.8 Gran % (42.2 - 75.2 %) 94.3 H Lymphocytes % (20.5 - 51.1 %) 3.1 L Monocytes % (1.7 - 9.3 %) 2.6 Eosinophils % (0 - 5 %) 0 Basophils % (0.0 - 2.0 %) 0 L Absolute Granulocytes (1.4 - 6.5 /CUMM) 7.6 H Segmented Neutrophils (42.2 - 75.2 %) 74 Band Neutrophils (0.0 - 5.0 %) 18 H Absolute Lymphocytes (1.2 - 3.4 /CUMM) 0.2 L Lymphocytes (20.5 - 51.1 %) 5 L Monocytes (1.7 - 9.3 %) 3 Absolute Monocytes (0.10 - 0.60 /CUMM) 0.2 Absolute Eosinophils (0.0 - 0.7 /CUMM) 0 Absolute Basophils (0.0 - 0.2 /CUMM) 0 Platelet Estimate (ADEQUATE) DECREASED Hypochromic-Microcytic 2+ Poikilocytosis 1+ Anisocytosis 1+ Ovalocytes 1+ PUBS MCHC (33.0 - 37.0 G/DL) 33.7 Last 24 Hours of Bharat Results: Blood cultures 2 January 30 pending Left knee synovial fluid January 30 culture pending, with gram stain revealing many white blood cells and rare gram-positive cocci Assessment/Plan Assessment/Plan Impression: This is an 82-year-old man with a history of diabetes, atrial fibrillation, maintained on Eliquis, status post left knee replacement 2 and 1/2 years prior to admission, requiring removal and replacement one year prior to admission after developing an infection, treated empirically with 6 weeks of IV Cefazolin, with cultures negative, admitted today with the acute onset of fevers, chills and left knee inflammation, status post left knee arthrocentesis yielding cloudy fluid, with cell count unable to be performed, but with gram revealing rare gram -positive cocci. It appears that his prosthesis is infected and that he will require at least debridement and drainage in the OR. As his symptoms are acute an attempt at retention of the prosthesis would be reasonable, followed by a prolonged course (6 weeks) of antibiotics directed against the organism isolated. Possible etiologies include Staph aureus, including MRSA, and coag- negative Staph as well as streptococci (for example beta-hemolytic strep) and empiric antibiotics should be directed against these pathogens. His thrombocytopenia and elevated bilirubin are likely secondary to his acute infection. Suggestion: 1. Follow-up synovial fluid culture 2. Consider repeat left knee arthrocentesis if the synovial fluid culture is negative 3. Discontinue Unasyn 4. Begin Vancomycin 1.5 grams IV every 24 hours pending above Consult Acknowledgment - Thank you for your consult request.
[2017-01-30 23:45] VITALS: BP 148/80
--- NOTE | 2017-01-31 00:20 | NUR ---
NURSING NOTE: RESPIRATORY AT BEDSIDE EVALUATING PATIENT AT THIS TIME. INCREASED O2 TO 3L NC, O2 SAT 94-95% AT THIS TIME, LUNG SOUNDS CLEAR, PATIENT IN NO ACUTE DISTRESS. WILL CONTINUE TO MONITOR.
--- NOTE | 2017-01-31 00:30 | NUR ---
NURSING NOTE: LATE ENTRY FOR 2329. DURING REPORT WITH EVENING NURSE PATIENT BECAME SOB AND VISIBLY SHIVERING, PATIENT IS A&OX3, CALM AND REPORTS HE "FEELS FINE, BUT COLD." VS 148/80, HR 93, ORAL TEMP 98.3, RECTAL TEMP 102.9, RR 33, O2 89% ON ROOM AIR. PATIENT PLACED ON 2L O2, O2 SAT 91%. MD ZARATE MADE AWARE OF ABOVE, RESPIRATORY MADE AWARE WELL. IMGEE ASSESSING PATIENT AT BEDSIDE, IV TYLENOL RUNNING PER MD, WHEN FINISHED IV VANCO AND IVF WILL CONTINUE. RESPIRATORY STATED THEY WILL BE IN TO SEE PATIENT SHORTLY. PATIENT RESTING IN BED, CALL LIGHT IN PLACE, BED LOW AND LOCKED. WILL CONTINUE TO MONITOR AND RECHECK VS @ 0200.
[2017-01-31 02:15] VITALS: BP 118/62
[2017-01-31 06:08] VITALS: BP 138/72
--- NOTE | 2017-01-31 07:13 | PN- Housestaff ---
JAHAIRA ODELL,KIM 01/31/17 0713: Subjective Follow-up For: Sepsis, 2/2 Left knee septic arthritis Complaints: no complaints Subjective: I followed up and examined the patient today. He is resting comfortably in bed, is not in distress, has his left knee elevated. His vitals have been stable, no overnight issues. BP has remained better since admission and fluid resuscitation. Review of Systems Constitutional: Reports: see HPI. Objective Last 24 Hrs of Vital Signs/I&O Vital Signs Date Time Temp Pulse Resp B/P B/P Pulse O2 O2 Flow FiO2 Mean Ox Delivery Rate 01/31 1755 100.0 01/31 1656 102.5 01/31 1628 102.5 01/31 1419 103.0 01/31 1411 103.0 01/31 1358 98.7 94 20 146/80 92 Nasal 3.0L Cannula 01/31 1026 70 124/72 01/31 1025 70 124/72 01/31 1024 70 124/72 01/31 1024 70 124/72 01/31 0944 Nasal 2.0L Cannula 01/31 0808 99.0 01/31 0800 92 Nasal 3.0L Cannula 01/31 0615 101.9 01/31 0608 101.9 88 22 138/72 92 Nasal 3.0L Cannula 01/31 0215 100.4 68 22 118/62 95 Nasal 3.0L Cannula 01/31 0016 92 Nasal 3.0L Cannula 01/31 0000 92 Room Air 01/30 2345 102.9 01/30 2345 102.9 93 33 148/80 91 Nasal 3.0L Cannula 01/30 1914 98.0 82 20 128/64 93 Room Air Intake & Output 01/31 1600 01/31 0800 01/31 0000 Intake Total 700 1280 350 Output Total 800 100 Balance -100 1180 350 Intake, IV 200 1040 300 Intake, Oral 500 240 50 Number 0 0 Bowel Movements Output, Urine 800 100 Patient 92.986 kg Weight Physical Exam General Appearance: Alert, Oriented X3, Cooperative, No Acute Distress, overweight Other Physical Findings: Skin No Rashes, No Breakdown, NO REDNESS OVER LEFT GOODMAN OR LEFT KNEE PRESENT DURING ADMISSION Skin Temp/Moisture Exam: Warm/Dry Lymphatic Axillary nl, Cervical nl Cardiovascular Normal S1, Normal S2 Lungs Clear to Auscultation, Normal Air Movement Abdomen Normal Bowel Sounds, Soft, No Tenderness Neurological Normal Speech, Strength at 5/5 X4 Ext, grossly intact Extremities LEFT LOWER tender, and BETTER today, Right knee normal Vascular Normal Pulses, Pulses Symmetrical Current Medications: Current Medications Sig/Willi Start time Last Medication Dose Route Stop Time Status Admin Acetaminophen 650 MG Q6P PRN 01/30 1500 AC 01/31 PO 1656 Acetaminophen 1,000 MG Q6P PRN 01/30 1500 AC 01/31 IV 1419 Amlodipine Besylate 10 MG DAILY 01/31 1000 AC 01/31 PO 1025 Ampicillin 2,000 MG Q6H 01/31 1800 AC 01/31 Sodium Chloride 100 ML IV 1815 Ampicillin 2,000 MG Q6H 01/31 1600 DC Sodium Chloride 100 ML IV Ampicillin Sodium/ 3,000 MG Q6H 01/30 2100 CAN Sulbactam Sodium IV Sodium Chloride 100 ML Apixaban 2.5 MG BID 01/30 2200 DC 01/30 PO 2232 Cholecalciferol 1,000 IU 2200 01/31 2200 AC PO Cholecalciferol 1,000 IU DAILY 01/31 1000 DC PO Docusate Sodium 100 MG BID 01/30 2200 AC 01/31 PO 1024 Ferrous Sulfate 325 MG BID 01/30 2200 AC 01/31 PO 1338 Furosemide 60 MG QAM 01/31 1000 AC 01/31 PO 1025 Hydromorphone HCl 1 MG Q4P PRN 01/31 1030 AC IV Insulin Aspart 0 TIDAC 01/30 1700 AC 01/31 SC 1657 Lisinopril 40 MG DAILY 01/31 1000 AC 01/31 PO 1024 Metoprolol Succinate 50 MG DAILY 01/31 1000 AC 01/31 PO 1024 Oxycodone/ 1 TAB Q6P PRN 01/30 2030 AC 01/31 Acetaminophen PO 0815 Polyethylene Glycol 17 GM DAILY 01/31 1030 AC 01/31 PO 1339 Pravastatin Sodium 80 MG 2200 01/31 2200 AC PO Pravastatin Sodium 80 MG DAILY 01/31 1000 DC PO Senna/Docusate Sodium 1 TAB BID 01/31 1024 AC 01/31 PO 1339 Sodium Chloride 1,000 ML Q10H 01/30 1745 DC 01/31 IV 0832 Sodium Chloride 1,000 ML ONCE ONE 01/30 1630 DC 01/30 IV 01/31 0549 1711 Tamsulosin HCl 0.4 MG DAILY 01/31 1000 AC 01/31 PO 1026 Vancomycin HCl 1,500 MG 2200 01/300 DC 01/30 Sodium Chloride 250 ML IV 2230 Last 24 Hrs of Lab/Bharat Results Last 24 Hrs of Labs/Mics: Laboratory Tests 01/31/17 0653: Anion Gap 11, Estimated GFR > 60, BUN/Creatinine Ratio 25.5 H, Total Bilirubin 1.2, Direct Bilirubin 0.6 H, AST 29, ALT 33, Alkaline Phosphatase 37, Total Protein 5.5 L, Albumin 3.2 L, CBC w Diff MAN DIFF ORDERED, RBC 3.84 L, MCV 89.4, MCH 29.6, RDW 15.1 H, MPV 10.4, Gran % 94.0 H, Lymphocytes % 3.7 L, Monocytes % 2.3, Eosinophils % 0, Basophils % 0 L, Absolute Granulocytes 8.7 H , Segmented Neutrophils 62, Band Neutrophils 31 H, Absolute Lymphocytes 0.3 L, Lymphocytes 4 L, Monocytes 2, Absolute Monocytes 0.2, Absolute Eosinophils 0, Basophils 1, Absolute Basophils 0, Anisocytosis 1+, PUBS MCHC 33.1 01/31/17 0220: Lactic Acid 1.5 01/30/17 2330: Lactic Acid 2.5 H 01/30/172023: Lactic Acid 3.6 H Assessment/Plan Assessment: 82-year-old male with past medical history of atrial fibrillation on Eliquis, hypertension, hyperlipidemia, recurrent cellulitis, left knee replacement, followed by left knee septic arthritis requiring antibiotics and replacement of hardware, diabetes not on insulin, presented to the emergency department with sudden onset of fever, sweating, left knee pain/swelling/redness starting . He is currently being managed in the general medical floor for the following issues: #Sepsis, secondary to left septic arthritis Patient's typical history, physical examination at presentation, WBC of 8.1 with bandemia of 18, and lactic acidosis gives a diagnosis of sepsis. Septic arthritis has been confirmed by the presence of bacteria seen from the aspirate done in the emergency department. * ID consultation appreciated. Patient was initially placed on Unasyn, changed to vancomycin pending culture/Gram stain but is now on ampicillin after the initial test shows group B beta Streptococcus. * Orthopedic consultation appreciated. Patient will require washout/open surgical procedure for the left knee as soon as possible. Awaiting orthopedic consultation note today, especially regarding possible surgical procedure tomorrow. Patient has been kept nothing by mouth from midnight in anticipation. * I spoke with patient's regular hairspring vibrator Dr. Clemente, who mentioned to me that his regular dose of Eliquis can be held safely before surgery starting today and has to be resumed 2-3 days after the surgery depending on the patient' s condition. He also mentioned that the reduced dose of 2.5mg BID is because he had an episode of hemorrhagic knee effusion after his last episode of septic arthritis. His plan was to escalate anticoagulation to full dose of Eliquis, but will not be done during this admission, and rather as an outpatient later. * His lactic acid is back to normal at 1.5, IV fluids discontinued and the patient is eating and drinking properly by mouth. #Diabetes mellitus Patient is on insulin sliding scale, regular Accu-Cheks and on diabetic diet. #Rest of his home medication has been continued. #DVT prophylaxis was Eliquis until last night. Currently with ALPS. #Diet: diabetic diet #CODE STATUS is DNR/DNI Problem List: 1. Septic arthritis of knee, left 2. Diabetes 3. HTN (hypertension) 4. HLD (hyperlipidemia) Pain Ratin Pain Location: left knee Pain Goal: Pain 4 or less Pain Plan: prn Tomorrow's Labs & Rationales: CBC, GALIP DOROTHEA ODELL,[facility] 01/31/17 1135: Attending MD Review Statement Attending Statement Attending MD Statement: examined this patient, discuss w/resident/PA/CAMERA MECHANIC, agreed w/resident/PA/CAMERA MECHANIC, discussed with family, reviewed EMR data (avail), discussed with nursing, reviewed images Attending Assessment/Plan: 82-year-old male past medical history of A. fib on Eliquis, left knee prosthesis with prosthetic infection requiring removal of the prosthesis and 6 weeks of IV antibiotics. This new prosthesis is about a-year-old old and now he comes in with a septic arthritis. Was tapped in the ER yesterday and the fluid is growing strep. Initially started on Vanco empirically to cover for staph and strep including coag negative staph but now we can probably narrow the antibiotics. He had evidence of SIRS with a high white count and fever. At this point will hold the Eliquis and contact cardiology regarding whether bridging will be needed or not. We will also contact Jamar Komninakas, MD as he'll need to go to the OR to get the joint washed out and treatment of prosthetic joint septic arthritis.
[2017-01-31 09:11] LABS: ABSOLUTE BASOPHIL COUNT 0 /CUMM (0.0-0.2); ABSOLUTE EOSINOPHIL COUNT 0 /CUMM (0.0-0.7); ABSOLUTE GRANULOCYTE CT 8.7 /CUMM (1.4-6.5); ABSOLUTE LYMPH COUNT 0.3 /CUMM (1.2-3.4); ABSOLUTE MONOCYTE COUNT 0.2 /CUMM (0.10-0.60); BASOPHIL % 0 % (0.0-2.0); EOSINOPHIL % 0 % (0-5); HEMATOCRIT 34.3 % (42-52); MEAN CORPUSCULAR HGB 29.6 PG (27.0-31.0); MEAN CORPUSCULAR HGB CONC 33.1 G/DL (33.0-37.0); MEAN CORPUSCULAR VOLUME 89.4 FL (80.0-94.0); MEAN PLATELET VOLUME 10.4 FL (7.4-10.4); RBC DISTRIBUTION WIDTH 15.1 % (11.5-14.5); RED BLOOD CELL CT 3.84 /CUMM (4.70-6.10); WHITE BLOOD CELL COUNT 9.3 /CUMM (4.8-10.8)
[2017-01-31 11:11] LABS: PLATELET COUNT 73 /CUMM (130-400)
--- NOTE | 2017-01-31 13:02 | PN- Infect Dx ---
Subjective Subjective: MAXIMUM TEMPERATURE 102.9. He notes some discomfort in the left knee. Objective Last 24 Hrs of Vital Signs/I&O Vital Signs Date Time Temp Pulse Resp B/P B/P Pulse O2 O2 Flow FiO2 Mean Ox Delivery Rate 01/31 1026 70 124/72 01/31 1025 70 124/72 01/31 1024 70 124/72 01/31 1024 70 124/72 01/31 0944 Nasal 2.0L Cannula 01/31 0808 99.0 01/31 0615 101.9 01/31 0608 101.9 88 22 138/72 92 Nasal 3.0L Cannula 01/31 0215 100.4 68 22 118/62 95 Nasal 3.0L Cannula 01/31 0016 92 Nasal 3.0L Cannula 01/31 0000 92 Room Air 01/30 2345 102.9 01/30 2345 102.9 93 33 148/80 91 Nasal 3.0L Cannula 01/30 1914 98.0 82 20 128/64 93 Room Air 01/30 1817 99.8 83 16 107/55 94 Room Air 01/30 1709 101.0 01/30 1708 101.0 96 20 132/87 93 Room Air Room Air 01/30 1527 100.4 94 20 139/58 95 Room Air 01/30 1328 99.7 93 16 113/65 96 Room Air Room Air Intake & Output 01/31 1600 01/31 0800 01/31 0000 Intake Total 1280 350 Output Total 200 100 Balance -200 1180 350 Intake, IV 1040 300 Intake, Oral 240 50 Number 0 Bowel Movements Output, Urine 200 100 Patient 205 lb Weight Physical Exam Other Physical Findings: He appears comfortable in no acute distress Skin diaphoretic Lungs bibasilar crackles Heart irregular rhythm with no murmur Extremities left knee swelling and warmth, with no erythema and no active drainage; decreased range of motion, with pain on movement; decreased erythema below the knee Results Last 24 Hours of Lab Results: Laboratory Tests 01/31 01/31 01/30 01/30 0653 0 2329 2023 Chemistry Sodium (137 - 145 mmol/L) 134 L Potassium (3.5 - 5.1 mmol/L) 4.3 Chloride (98 - 107 mmol/L) 103 Carbon Dioxide (22 - 30 mmol/L) 21 L Anion Gap (5 - 16) 11 BUN (9 - 20 mg/dL) 28 H Creatinine (0.7 - 1.2 mg/dL) 1.1 Estimated GFR (>60 ml/min) > 60 BUN/Creatinine Ratio (7 - 25 %) 25.5 H Lactic Acid (0.7 - 2.1 mmol/L) 1.5 2.5 H 3.6 H Total Bilirubin (0.2 - 1.3 mg/dL) 1.2 Direct Bilirubin (< 0.4 mg/dL) 0.6 H AST (17 - 59 U/L) 29 ALT (21 - 72 U/L) 33 Alkaline Phosphatase (< 127 U/L) 37 Total Protein (6.3 - 8.2 g/dL) 5.5 L Albumin (3.5 - 5.0 g/dL) 3.2 L Hematology CBC w Diff MAN DIFF ORDERED WBC (4.8 - 10.8 /CUMM) 9.3 RBC (4.70 - 6.10 /CUMM) 3.84 L Hgb (14.0 - 18.0 G/DL) 11.4 L Hct (42 - 52 %) 34.3 L MCV (80.0 - 94.0 FL) 89.4 MCH (27.0 - 31.0 PG) 29.6 RDW (11.5 - 14.5 %) 15.1 H Plt Count (130 - 400 /CUMM) 73 L MPV (7.4 - 10.4 FL) 10.4 Gran % (42.2 - 75.2 %) 94.0 H Lymphocytes % (20.5 - 51.1 %) 3.7 L Monocytes % (1.7 - 9.3 %) 2.3 Eosinophils % (0 - 5 %) 0 Basophils % (0.0 - 2.0 %) 0 L Absolute Granulocytes (1.4 - 6.5 /CUMM) 8.7 H Segmented Neutrophils (42.2 - 75.2 %) 62 Band Neutrophils (0.0 - 5.0 %) 31 H Absolute Lymphocytes (1.2 - 3.4 /CUMM) 0.3 L Lymphocytes (20.5 - 51.1 %) 4 L Monocytes (1.7 - 9.3 %) 2 Absolute Monocytes (0.10 - 0.60 /CUMM) 0.2 Absolute Eosinophils (0.0 - 0.7 /CUMM) 0 Basophils (0.0 - 2.0 %) 1 Absolute Basophils (0.0 - 0.2 /CUMM) 0 Anisocytosis 1+ PUBS MCHC (33.0 - 37.0 G/DL) 33.1 01/30 01/30 01/30 01/30 1855 1644 1534 1337 Chemistry Lactic Acid (0.7 - 2.1 mmol/L) 3.4 H 4.2 H Hematology Lymphocytes (%) 1 % Normal PMNs (%) 96 ESR Westergren (0 - 10 MM) 9 Other Body Source Fluid WBC (0 - 5 /CUMM) Fld Total RBCs Counted (0 /CUMM) Last 24 Hours of Bharat Results: Blood cultures January 30 negative Left knee synovial fluid culture January 30 positive for Group B strep Assessment/Plan Impression: Infected left knee prosthesis, with Group B strep isolated from the recent knee arthrocentesis. He remains febrile with a significant bandemia and with decreasing platelets consistent with sepsis. He will need debridement of the left knee but, as his symptoms were acute, he should be able to be managed with retention of the prosthesis followed by a six-week course of IV antibiotics, after which he will require a prolonged course (for example 6 months) of oral antibiotics. He has been somewhat tachypneic and, with bibasilar crackles, fluid overload should be ruled out. Suggestion: 1. Await orthopedic follow-up 2. Would obtain a chest x-ray 3. Discontinue Vancomycin 4. Will need a PICC 5. Begin Ampicillin 2 g IV every 6 hours
[2017-01-31 13:58] VITALS: BP 146/80
--- NOTE | 2017-01-31 15:12 | RADIOLOGY REPORT ---
EXAMINATION: XR CHEST CLINICAL INFORMATION: Crackles at lung bases. Concern for fluid overload. Septic. COMPARISON: Chest x-ray 01/07/2016, 12:28 PM TECHNIQUE: 2 views of the chest were obtained. 2:35 PM FINDINGS: There are small bilateral pleural effusions blunting the costophrenic angle posteriorly. Mild central vascular prominence increased since prior chest x-ray without overt pulmonary edema. No infiltrate. Heart size top normal. There is vascular wall calcifications of aorta. IMPRESSION: Small bilateral pleural effusions with mild central vascular prominence.
--- NOTE | 2017-01-31 16:33 | NUR ---
nursing note; pt temp rectally after iv tylenol is 102.5, previous rectal temp 103, video editing intern ashley aware, no further orders at this time, will cont to monitor
--- NOTE | 2017-01-31 16:54 | NUR ---
per news internship latrice ramirez to give 650 mg po tylenol at this time, will cont to monitor
[2017-01-31 23:09] VITALS: BP 125/56
--- NOTE | 2017-01-31 23:54 | Event Note ---
Event Note Event Note: Pt is NPO. Insulin changed to regular insulin NPO sliding scale. D51/2NS at 75ml/hr 1 bag ordered. 1Xtoradol given. I also changed the pain meds as he is getting a lot of acetaminophen - Discontinued tylenol po - Discontinued perocet - IV tylenol q8p mild pain/fever - Roxicodone for moderate pain - Dilaudid for severe pain
[2017-02-01 07:42] VITALS: BP 131/81
[2017-02-01 08:18] LABS: ABSOLUTE BASOPHIL COUNT 0 /CUMM (0.0-0.2); ABSOLUTE EOSINOPHIL COUNT 0 /CUMM (0.0-0.7); ABSOLUTE GRANULOCYTE CT 6.1 /CUMM (1.4-6.5); ABSOLUTE LYMPH COUNT 0.5 /CUMM (1.2-3.4); ABSOLUTE MONOCYTE COUNT 0.2 /CUMM (0.10-0.60); BASOPHIL % 0.1 % (0.0-2.0); EOSINOPHIL % 0.2 % (0-5); GRANULOCYTE % 89.8 % (42.2-75.2); HEMATOCRIT 32.9 % (42-52); MEAN CORPUSCULAR HGB 29.8 PG (27.0-31.0); MEAN CORPUSCULAR HGB CONC 33.5 G/DL (33.0-37.0); MEAN CORPUSCULAR VOLUME 88.8 FL (80.0-94.0); MEAN PLATELET VOLUME 10.9 FL (7.4-10.4); PLATELET COUNT 57 /CUMM (130-400); RBC DISTRIBUTION WIDTH 14.6 % (11.5-14.5); RED BLOOD CELL CT 3.71 /CUMM (4.70-6.10); WHITE BLOOD CELL COUNT 6.8 /CUMM (4.8-10.8)
--- NOTE | 2017-02-01 10:05 | NUR ---
NURSING NOTE: SAMANTHA SWENSON RN PLACED PICC LINE TO YAHIR PER MD ORDER; PCXR ORDERED AT THIS TIME TO CONFIRM PLACEMENT. PT NOTED TO HAVE SLIGHT EXPIRATORY WHEEZE, WHEN ASKED IF PT HAS DIFFICULTY WHEEZING HE STATES "ITS JUST A LITTLE WHISPERY" PT DENIES COMPLAINTS. MANAGER PRESENTATION KIM MADE AWARE. 3L NC 95%
--- NOTE | 2017-02-01 10:50 | RADIOLOGY REPORT ---
EXAMINATION: XR PORTABLE CHEST CLINICAL INFORMATION: PICC line placement. COMPARISON: Yesterday, 01/31/2017. TECHNIQUE: Portable frontal view of the chest was obtained. FINDINGS: Since yesterday's study, a right-sided PICC line has been placed and its tip is in the SVC. There has been no other significant interval change. IMPRESSION: PICC line tip in SVC.
--- NOTE | 2017-02-01 11:19 | PN- Housestaff ---
Subjective Follow-up For: Sepsis, 2/2 Left knee septic arthritis Complaints: fever yesterday evening Subjective: I followed up and examined the patient today. He is resting comfortably in bed, is not in distress, has his left knee elevated. His vitals have been stable, except for fever yesterday evening, MAXIMUM TEMPERATURE of 103, no overnight issues. He is eagerly waiting for his left knee orthopedic surgery/washout later today. Review of Systems Constitutional: Reports: see HPI, fever. Objective Last 24 Hrs of Vital Signs/I&O Vital Signs Date Time Temp Pulse Resp B/P B/P Pulse O2 O2 Flow FiO2 Mean Ox Delivery Rate 02/01 1009 20 95 Nasal 3.0L Cannula 02/01 0927 122/78 02/01 0927 70 122/68 02/01 0800 94 Nasal 3.0L Cannula 02/01 0742 98.2 80 20 131/81 92 Nasal Cannula 02/01 0238 99.5 02/01 0100 101.1 02/01 0045 101.1 02/01 0000 93 Nasal 3.0L Cannula 01/31 2309 101.8 85 20 125/56 93 Nasal 2.0L Cannula 01/31 2255 101.8 01/31 1755 100.0 01/31 1656 102.5 01/31 1628 102.5 01/31 1600 Nasal 3.0L Cannula 01/31 1419 103.0 01/31 1411 103.0 01/31 1358 98.7 94 20 146/80 92 Nasal 3.0L Cannula Intake & Output 02/01 1600 02/01 0800 02/01 0000 Intake Total 600 1600 Output Total 626 350 5235 Balance -400 350 600 Intake, IV 600 800 Intake, Oral 800 Number 1 Bowel Movements Output, Urine 446 411 2074 Physical Exam General Appearance: Alert, Oriented X3, Cooperative, No Acute Distress, overweight Other Physical Findings: Skin No Rashes, No Breakdown, NO REDNESS OVER LEFT GOODMAN OR LEFT KNEE Skin Temp/Moisture Exam: Warm/Dry Lymphatic Cervical nl Cardiovascular Normal S1, Normal S2 Lungs Clear to Auscultation, Normal Air Movement Abdomen Normal Bowel Sounds, Soft, No Tenderness Neurological Grossly intact Extremities LEFT LOWER tender no more red, BETTER today, has a midline scar from previous surgery, Right knee normal Vascular Normal Pulses, Pulses Symmetrical Current Medications: Current Medications Sig/Willi Start time Last Medication Dose Route Stop Time Status Admin Acetaminophen 1,000 MG Q8P PRN 02/01 0045 AC IV Acetaminophen 650 MG .STK-MED ONE 01/31 2256 DC PO 01/31 225 Acetaminophen 650 MG .STK-MED ONE 01/31 1655 DC PO 01/31 1656 Acetaminophen 650 MG Q6P PRN 01/30 1500 DC 01/31 PO 2255 Acetaminophen 1,000 MG Q6P PRN 01/30 1500 DC 01/31 IV 1419 Amlodipine Besylate 10 MG DAILY 01/31 1000 AC 02/01 PO 09 Ampicillin 2,000 MG Q6H 01/31 1800 AC 02/01 Sodium Chloride 100 ML IV 0625 Ampicillin 2,000 MG Q6H 01/31 1600 DC Sodium Chloride 100 ML IV Cholecalciferol 1,000 IU 2200 01/31 2200 AC 01/31 PO 215 Dextrose/Sodium 1,000 ML Q13H 01/31 2345 AC 02/01 Chloride IV 02/01 1244 0055 Docusate Sodium 100 MG BID 01/30 2200 AC 01/31 PO 215 Ferrous Sulfate 325 MG BID 01/30 2200 AC 02/01 PO 09 Furosemide 60 MG QAM 01/31 1000 AC 02/01 PO 09 Hydromorphone HCl 1 MG Q4P PRN 01/31 1030 AC IV Insulin Aspart 0 TIDAC 01/30 1700 DC 01/31 SC 1657 Insulin Human Regular 2 UNITS .STK-MED ONE 02/01 0103 DC IV 02/01 0104 Insulin Human Regular 0 Q6 01/31 2359 AC 02/01 SC 0625 Ketorolac 30 MG .STK-MED ONE 02/01 0110 DC Tromethamine IM 02/01 0111 Ketorolac 15 MG .STK-MED ONE 02/01 0102 DC Tromethamine IM 02/01 0103 Ketorolac 30 MG ONCE ONE 01/31 2345 DC 02/01 Tromethamine IV 01/31 2346 0111 Lisinopril 40 MG DAILY 01/31 1000 AC 02/01 PO 09 Metoprolol Succinate 50 MG DAILY 01/31 1000 AC 02/01 PO 0927 Oxycodone HCl 5 MG Q6P PRN 02/01 0045 AC PO Oxycodone/ 1 TAB Q6P PRN 01/30 2030 DC 01/31 Acetaminophen PO 0815 Polyethylene Glycol 17 GM DAILY 01/31 1030 AC 01/31 PO 1339 Pravastatin Sodium 80 MG 01/31 2200 AC 01/31 PO 215 Senna/Docusate Sodium 1 TAB BID 01/31 1024 AC 01/31 PO 215 Tamsulosin HCl 0.4 MG DAILY 01/31 1000 AC 02/01 PO 0927 Vancomycin HCl 1,500 MG 01/30 220 DC 01/30 Sodium Chloride 250 ML IV 2230 Last 24 Hrs of Lab/Bharat Results Last 24 Hrs of Labs/Mics: Laboratory Tests 02/01/17 0615: Anion Gap 9, Estimated GFR > 60, BUN/Creatinine Ratio 27.0 H, CBC w Diff MAN DIFF ORDERED, RBC 3.71 L, MCV 88.8, MCH 29.8, RDW 14.6 H, MPV 10.9 H, Gran % 89.8 H, Lymphocytes % 6.9 L, Monocytes % 3.0, Eosinophils % 0.2, Basophils % 0.1, Absolute Granulocytes 6.1, Segmented Neutrophils 73, Band Neutrophils 16 H , Absolute Lymphocytes 0.5 L, Lymphocytes 9 L, Monocytes 2, Absolute Monocytes 0.2, Absolute Eosinophils 0, Absolute Basophils 0, Platelet Estimate DECREASED, Anisocytosis 1+, PUBS MCHC 33.5 Microbiology 02/01 1330 EXTREMITIE: Gross Specimen Examination - CAN Cancelled: ENTRY ERROR BY OR 02/01 1330 EXTREMITIE: Gram Stain - CAN Cancelled: ENTRY ERROR BY OR 02/01 1328 EXTREMITIE: Gross Specimen Examination - RECD 02/01 1328 EXTREMITIE: Gram Stain - RECD 02/01 1312 EXTREMITIE: Gross Specimen Examination - CAN Cancelled: BODY FLUID 02/01 1312 EXTREMITIE: Gram Stain - CAN Cancelled: BODY FLUID 02/01 1310 BODY FLUID: Body Fluid Culture - RECD 02/01 1310 BODY FLUID: Gram Stain - RECD Assessment/Plan Assessment: 82-year-old male with past medical history of atrial fibrillation on Eliquis, hypertension, hyperlipidemia, recurrent cellulitis, left knee replacement, followed by left knee septic arthritis requiring antibiotics and replacement of hardware, diabetes not on insulin, presented to the emergency department with sudden onset of fever, sweating, left knee pain/swelling/redness starting . He is currently being managed in the general medical floor for the following issues: #Sepsis, secondary to left septic arthritis Patient's typical history, physical examination at presentation, WBC of 8.1 with bandemia of 18, and lactic acidosis gives a diagnosis of sepsis. Septic arthritis has been confirmed by the presence of bacteria seen from the aspirate done in the emergency department. * ID consultation appreciated. Patient was initially placed on Unasyn, changed to vancomycin pending culture/Gram stain but is now on ampicillin after the initial test shows group B beta Streptococcus. * Orthopedic consultation appreciated. Patient is undergoing washout/open surgical procedure for the left knee today. * I spoke with patient's regular inspector and tester Dr. Clemente yesterday and today again, who mentioned to me that he spoke with orthopedics doctor as well and the patient is good to go for surgery, with a repeat CBC to follow-up on his low platelet count that was 57 this morning. In case his platelet decreases further , a hematologic consultation has to be placed and repleted accordingly. Plan to restart his Eliquis to be discussed tomorrow. #Diabetes mellitus Patient is on insulin sliding scale, regular Accu-Cheks and on diabetic diet. #Rest of his home medication has been continued. #DVT prophylaxis was Eliquis until last night. Currently with ALPS. #Diet: diabetic diet #CODE STATUS is DNR/DNI Problem List: 1. Septic arthritis of knee, left 2. Chronic CHF 3. Diabetes Pain Ratin Pain Location: left knee, much better today Pain Goal: Pain 4 or less Pain Plan: prn Tomorrow's Labs & Rationales: CBC
[2017-02-01 12:02] VITALS: BP 132/78
--- NOTE | 2017-02-01 12:07 | NUR ---
NURSING NOTE: PT LEFT FLOOR VIA STRETCHER WITH DISTIRBUTION FOR SURGERY OF L KNEE BY DR GONZALEZ, PT AWAKE, A/OX3, VITALS OBTAINED AND DOCUMENTED, 3L NC 94%. PT DENIES DISTRESS, NO WHEEZING NOTED AT THIS TIME, IVF PER MD ORDER VIA LAC. PT ALSO HAS A SINGLE LUMEN PICC TO RIGHT UPPER ARM, PINK WRIST BAND TO R ARM. WILL DC LAC IV AFTER OR. FSG 165, NO COVERAGE GIVEN AT THIS TIME, PT NPO, KIM AWARE. 1200PM ANTIBX DOSE SENT WITH PT TO OR PER OR REQUEST; IDALMIS IN OR AWARE. EDEMA NOTED TO L KNEE/LEG AREA. OR CHECKLIST AND STAMPER SENT WITH PT. TICKET TO RIDE COMPLETE, CHART SENT WITH PT. OR SCRUB DONE THIS AM. DAUGHTERS AT BEDSIDE.
--- NOTE | 2017-02-01 14:14 | PN- Att Addend ---
Attending MD Review Statement Attending Statement Attending MD Statement: examined this patient, discuss w/resident/PA/OXYGEN THERAPY TECHNICIAN, agreed w/resident/PA/OXYGEN THERAPY TECHNICIAN, discussed with family, reviewed EMR data (avail), discussed w/ nursing Attending Assessment/Plan: Laboratory Tests 02/01/17 0615: Anion Gap 9, Estimated GFR > 60, BUN/Creatinine Ratio 27.0 H, CBC w Diff MAN DIFF ORDERED, RBC 3.71 L, MCV 88.8, MCH 29.8, RDW 14.6 H, MPV 10.9 H, Gran % 89.8 H, Lymphocytes % 6.9 L, Monocytes % 3.0, Eosinophils % 0.2, Basophils % 0.1, Absolute Granulocytes 6.1, Segmented Neutrophils 73, Band Neutrophils 16 H , Absolute Lymphocytes 0.5 L, Lymphocytes 9 L, Monocytes 2, Absolute Monocytes 0.2, Absolute Eosinophils 0, Absolute Basophils 0, Platelet Estimate DECREASED, Anisocytosis 1+, PUBS MCHC 33.5 Vital Signs Date Time Temp Pulse Resp B/P B/P Pulse O2 O2 Flow FiO2 Mean Ox Delivery Rate 02/01 1202 98.2 88 20 132/78 94 Nasal 3.0L Cannula 02/01 1009 20 95 Nasal 3.0L Cannula 02/01 0927 122/78 02/01 0927 70 122/68 02/01 0800 94 Nasal 3.0L Cannula 02/01 0742 98.2 80 20 131/81 92 Nasal Cannula 02/01 0238 99.5 02/01 0100 101.1 02/01 0045 101.1 02/01 0000 93 Nasal 3.0L Cannula 01/31 2309 101.8 85 20 125/56 93 Nasal 2.0L Cannula 01/31 2255 101.8 01/31 1755 100.0 01/31 1656 102.5 01/31 1628 102.5 01/31 1600 Nasal 3.0L Cannula 01/31 1419 103.0 01/31 1411 103.0 Patient seen and examined at bedside. Discussed with patient as well as patient 's family the care plan. Patient underwent PICC placement today. 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 Knee exam reveals swelling and redness of the knee joint. Labs today are significant for platelets of 57,000. Patient currently on IV ampicillin which we have planning to continue. Discussed with the orthopedics the low platelet count as well as that patient received last dose of Eliquis on . They are okay with proceeding for surgery today. Discussed with cardiology and they are okay with the the surgery today without any further cardiology workup. We will repeat the CBC after the procedure to follow-up on platelet count and will get hematology involved if the platelet counts continues to drop and does not improve.
--- NOTE | 2017-02-01 15:18 | NUR ---
NURSING NOTE: PT REMAINS OFF FLOOR IN OR, REPORT GIVEN TO EVENING RN
--- NOTE | 2017-02-01 15:47 | PN- Orthopedic ---
Subjective Subjective: Patient describes less pain since yesterday. He was able to ambulate with walker. Objective Vital Signs and I&Os Vital Signs Date Time Temp Pulse Resp B/P B/P Pulse O2 O2 Flow FiO2 Mean Ox Delivery Rate 02/01 1202 98.2 88 20 132/78 94 Nasal 3.0L Cannula 02/01 1009 20 95 Nasal 3.0L Cannula 02/01 0927 122/78 02/01 0927 70 122/68 02/01 0800 94 Nasal 3.0L Cannula 02/01 0742 98.2 80 20 131/81 92 Nasal Cannula 02/01 0238 99.5 02/01 0100 101.1 02/01 0045 101.1 02/01 0000 93 Nasal 3.0L Cannula 01/31 2309 101.8 85 20 125/56 93 Nasal 2.0L Cannula 01/31 2255 101.8 01/31 1755 100.0 01/31 1656 102.5 01/31 1628 102.5 01/31 1600 Nasal 3.0L Cannula Intake & Output 02/01 1600 02/01 0800 02/01 0000 01/31 1600 01/31 0800 01/31 0000 Intake Total 677 991 5677 700 1280 350 Output Total 115 393 7610 800 100 Balance -300 350 600 -100 1180 350 Intake, IV 375 600 179 585 0134 300 Intake, Oral 800 500 240 50 Number 1 0 0 Bowel Movements Output, Urine 517 839 6571 800 100 Patient 205 lb Weight Physical Exam: Examination of the left knee reveals warmth touch. Moderate knee effusion. Calf is soft and nontender. Mild distal edema but no pitting. Neuro intact Assessment/Plan Assessment/Plan Septic left knee-final cultures and sensitivities are available today. Patient has an organism that is sensitive to ampicillin which she is currently on. We discussed options for treatment but I recommended Iand D and poly-exchange. Symptoms have been only for the past several days and therefore this treatment has preferable compared to explantation cement spacer and possible future and reimplantation. Also, patient is not interested in going through that procedure at this stage. He has multiple medical problems. We'll proceed with recommended plan. I discussed this with family as well. We'll discuss this with ID Attending MD Review Statement Attending Statement Attending MD Statement: examined this patient, discussed with family, discussed w/nursing
--- NOTE | 2017-02-01 16:27 | Operative Report ---
Operative/Inv Procedure Report Surgery Date: 02/01/17 Name of Procedure: Irrigation and debridement left total knee arthroplasty Polyethylene exchange Pre-Operative Diagnosis: septic left knee TKR Post-Operative Diagnosis: Same Estimated Blood Loss: 50ml to 100ml Surgeon/Pocketbook Maker: Talyor Whiteside Anesthesia: laryngeal mask airway Implants: Size 6 TS polyethylene-13 mm Drains: None Specimens: Synovial fluid, synovium Microbiology: Synovial fluid, synovium Tourniquet: 64 minutes Complications: None Condition: Stable Operative Indication: Patient is an 82-year-old man who originally underwent a total knee arthroplasty by Dr. Pinto several years ago. Last year he was diagnosed with a septic left total knee arthroplasty. I was asked to take over patient's care at that time. He underwent an explantation of his left total knee arthroplasty, antibiotic impregnated cement spacer and IV antibiotic treatment. He underwent revision/ reimplantation of left total knee arthroplasty approximately a year ago. Patient responded well to treatment but approximately 3 days ago he developed acute onset swelling and pain in his left lower extremity. His pain was primarily in his calf. He was diagnosed with cellulitis in the emergency room but synovial fluid was tapped from his left knee. Synovial fluid appeared to be cloudy and was sent for further evaluation. The specimen grew a beta strep organism. Due to this finding of acute septic joint, recommendation for surgical irrigation debridement and treatment was discussed. Due to relatively short duration of symptoms as well as the complicated nature of his previous total knee revision components, it was recommended to proceed with irrigation debridement, synovectomy and polyethylene exchange. Also, patient was not interested in any other procedure especially any procedure that would include explantation and cement spacer insertion. Patient did have an organism that was relatively susceptible to antibiotics and therefore this could be a reasonable definitive plan irrigation debridement and polyethylene exchange. Also due to patient's history and question of a hematogenous patient may ultimately need to be on suppressive antibiotics. This would be determined based on findings. Patient wished to proceed with the irrigation debridement/polyethylene exchange. Risks, benefits and expectations of the procedure which included but were not limited to persistent infection, DVT, injury to blood vessel or nerve, need for subsequent surgery, anesthesia risks Operative/Procedure Note Note: Patient was brought to the operating room and transferred to the operating table. Once under appropriate anesthesia the left lower extremity was prepped and draped in standard fashion. Preoperative IV antibiotic's were given prophylactically since we already had a specimen. The leg was elevated. It was not exsanguinated due to the infectious source. Tourniquet was inflated to 300 pressure. Standard anterior incision was made that was through the previous incisions. This was taken down through significant thickened scar tissue to the underlying retinaculum. A medial retinacular approach was used after I aspirated approximately 10 mL of cloudy synovial fluid. I made sure that the fluid did not or into the subcutaneous soft tissues. Suction was inserted through a small rent in the retinaculum prior to completing the retinacular incision. Debridement included complete synovectomy in the suprapatellar pouch. I also removed the TS component by removing the post with a saw and a Rongeur. The post was removed. The polyethylene component was removed. I was then able to access the posterior compartment. Using serial instruments including curved curet Basil or and the knife I was able to complete the synovectomy posteriorly as well. I use a brush to debride the interfaces between the metal components. There was no evidence of loosening of the components. The synovectomy was followed by copious irrigation of antibiotic irrigation. Once I was satisfied with the debridement I did check the soft tissue balancing. I was satisfied with the medial lateral balancing. I then proceeded to place the definitive size 6 TS component which was a 13 mm insert. The locking mechanism was confirmed. The pin was placed and impacted in position. Once the locking mechanism was confirmed I took the knee through range of motion I was satisfied with patellar tracking. This was followed by copious irrigation. Tourniquet inflation at 64 minutes. Hemostasis was obtained. There was no significant bleeding and therefore a drain was not necessary. This was followed by closure of the retinacular incision with interrupted #1 Vicryl sutures. Subcutaneous tissues closed in 2 layers with 2-0 Vicryl and skin was closed with esteban appropriate just his were applied and patient was awakened and taken the recovery room in good condition. Every level of closure was followed by copious irrigation. Blood loss was approximately 50 mL Discharge Disposition: PACU
[2017-02-01 16:43] VITALS: BP 132/74
[2017-02-01 17:17] LABS: ABSOLUTE BASOPHIL COUNT 0 /CUMM (0.0-0.2); ABSOLUTE EOSINOPHIL COUNT 0 /CUMM (0.0-0.7); ABSOLUTE GRANULOCYTE CT 6.7 /CUMM (1.4-6.5); ABSOLUTE LYMPH COUNT 0.6 /CUMM (1.2-3.4); ABSOLUTE MONOCYTE COUNT 0.2 /CUMM (0.10-0.60); BASOPHIL % 0 % (0.0-2.0); EOSINOPHIL % 0 % (0-5); HEMATOCRIT 31.6 % (42-52); MEAN CORPUSCULAR HGB 29.9 PG (27.0-31.0); MEAN CORPUSCULAR HGB CONC 33.6 G/DL (33.0-37.0); MEAN CORPUSCULAR VOLUME 89.1 FL (80.0-94.0); MEAN PLATELET VOLUME 10.6 FL (7.4-10.4); PLATELET COUNT 63 /CUMM (130-400); RBC DISTRIBUTION WIDTH 14.7 % (11.5-14.5); RED BLOOD CELL CT 3.54 /CUMM (4.70-6.10); WHITE BLOOD CELL COUNT 7.6 /CUMM (4.8-10.8)
--- NOTE | 2017-02-01 17:22 | Cons- Cardiology ---
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 Patient admitted with recurrent septic prosthetic left knee, growing Group Strep B from the aspirate. He just underwent left knee debridement and atb irrigation. He was spiking fever until last night. His platelet count has been steadily dropping. He reports mild dyspnea, he is on O2 3 L. Allergies/Medications Allergies: Coded Allergies: No Known Allergies (01/30/17) Home Med List: Amlodipine Besylate (Norvasc) 10 MG TABLET 1 TAB PO DAILY htn (Reported) Cholecalciferol (Vitamin D3) (Vitamin D) 1,000 UNIT TABLET 1 TAB PO DAILY SUPPLEMENT (Reported) Docusate Sodium (Colace) 100 MG CAPSULE 1 CAP PO BID constipation Ferrous Sulfate 325 MG TABLET 1 TAB PO BID anemia available over the counter Furosemide 20 MG TABLET 3 TAB PO QAM DIURETIC (Reported) Linagliptin (Tradjenta) 5 MG TABLET 1 TAB PO DAILY DIABETES (Reported) Lisinopril (Prinivil) 20 MG TABLET 1 TAB PO QPM HTN (Reported) Lisinopril 20 MG TABLET 1 TAB PO QAM BP (Reported) Metformin HCl (Glucophage) 1,000 MG TABLET 1 TAB PO BID GLUCOSE CONTROL ( Reported) Metoprolol Succinate 50 MG TAB.ER.24H 1 TAB PO DAILY HEART/BP (Reported) Multivitamin,Ther and Minerals (Multivitamins With Minerals Hp) 1 EACH CAPSULE 1 CAP PO QAM SUPPLEMENT (Reported) Oxycodone HCl/Acetaminophen (Percocet 5-325 MG Tablet) 1 EACH TABLET 2 TAB PO Q6P PRN PAIN Oxycodone HCl/Acetaminophen (Percocet 5-325 MG Tablet) 1 EACH TABLET 1-2 TAB PO Q4-6 PRN pain Polyethylene Glycol 3350 (Miralax) 17 GM POWD.PACK 1 PAC PO DAILY PRN CONSTIPATION dissolve in water Potassium Chloride 20 MEQ TAB.ER.PRT 1 TAB PO QAM SUPPLEMENT (Reported) Pravastatin Sodium (Pravachol) 80 MG TABLET 1 TAB PO QPM CHOLESTEROL ( Reported) Sennosides/Docusate Sodium (Senokot-S Tablet) 1 EACH TABLET 1 TAB PO BID PRN CONSTIPATION Tamsulosin HCl (Flomax) 0.4 MG CAP.ER.24H 1 CAP PO DAILY PROSTATE (Reported) Review of Systems Review of Systems: 14 point ROS negative except for HPI Past History Travel History Traveled to [place] past 21 day No Medical History Neurological: NONE EENT: NONE Cardiovascular: AFIB, CHF, hypertension, hyperlipidemia Respiratory: NONE Gastrointestinal: NONE Hepatic: NONE Renal: benign prost hyperplasia, nephrolithiasis Musculoskeletal: CELLULITIS of right leg 4 times, last one was in August 2014 Psychiatric: NONE Endocrine: diabetes Blood Disorders: NONE Cancer(s): melanoma, (REMOVED) 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 Psychosocial History Who Do You Live With? self Services at Home: None Primary Language: Croatian Smoking Status: Never Smoked ETOH Use: denies use Illicit Drug Use: denies illicit drug use Functional Ability ADLs Independent: dressing, eating, toileting, bathing. Ambulation: independent IADLs Independent: shopping, housework, finances, food prep, telephone, transportation , medication admin. ECHO Results (as available) EF% 55 Exam & Diagnostic Data Vital Signs and I&O Vital Signs Date Time Temp Pulse Resp B/P B/P Pulse O2 O2 Flow FiO2 Mean Ox Delivery Rate 02/01 1643 97.5 74 20 132/74 92 Nasal 3.0L Cannula 02/01 1202 98.2 88 20 132/78 94 Nasal 3.0L Cannula 02/01 1009 20 95 Nasal 3.0L Cannula 02/01 0927 122/78 02/01 0927 70 122/68 02/01 0800 94 Nasal 3.0L Cannula 02/01 0742 98.2 80 20 131/81 92 Nasal Cannula 02/01 0238 99.5 02/01 0100 101.1 02/01 0045 101.1 02/01 0000 93 Nasal 3.0L Cannula 01/31 2309 101.8 85 20 125/56 93 Nasal 2.0L Cannula 01/31 2255 101.8 01/31 1755 100.0 Intake & Output 02/01 1600 02/01 0800 02/01 0000 01/31 1600 01/31 0800 01/31 0000 Intake Total 221 902 5013 700 1280 350 Output Total 313 229 0720 800 100 Balance -300 350 600 -100 1180 350 Intake, IV 375 600 283 434 5914 300 Intake, Oral 800 500 240 50 Number 1 0 0 Bowel Movements Output, Urine 167 592 1164 800 100 Patient 205 lb Weight Physical Exam: HEENT-PERRLA Neck-JVP normal, no bruits Lungs-CTA bilaterally Heart S1S2 irregular, 1/2 LIZZIE at the base Abdomen-soft, mildly distended, not tender, BS+, no organomegaly Extr-1+ edema, more on the left, 2+ pulses, left knee covered with dressing Neuro- non focal Labs/Bharat Results: Laboratory Tests 02/01 02/01 1648 0615 Chemistry Sodium (137 - 145 mmol/L) 137 Potassium (3.5 - 5.1 mmol/L) 3.8 Chloride (98 - 107 mmol/L) 104 Carbon Dioxide (22 - 30 mmol/L) 24 Anion Gap (5 - 16) 9 BUN (9 - 20 mg/dL) 27 H Creatinine (0.7 - 1.2 mg/dL) 1.0 Estimated GFR (>60 ml/min) > 60 BUN/Creatinine Ratio (7 - 25 %) 27.0 H Hematology CBC w Diff Pending MAN DIFF ORDERED WBC (4.8 - 10.8 /CUMM) Pending 6.8 RBC (4.70 - 6.10 /CUMM) Pending 3.71 L Hgb (14.0 - 18.0 G/DL) Pending 11.0 L Hct (42 - 52 %) Pending 32.9 L MCV (80.0 - 94.0 FL) Pending 88.8 MCH (27.0 - 31.0 PG) Pending 29.8 RDW (11.5 - 14.5 %) Pending 14.6 H Plt Count (130 - 400 /CUMM) Pending 57 L MPV (7.4 - 10.4 FL) Pending 10.9 H Gran % (42.2 - 75.2 %) 89.8 H Lymphocytes % (20.5 - 51.1 %) 6.9 L Monocytes % (1.7 - 9.3 %) 3.0 Eosinophils % (0 - 5 %) 0.2 Basophils % (0.0 - 2.0 %) 0.1 Absolute Granulocytes (1.4 - 6.5 /CUMM) 6.1 Segmented Neutrophils (42.2 - 75.2 %) 73 Band Neutrophils (0.0 - 5.0 %) 16 H Absolute Lymphocytes (1.2 - 3.4 /CUMM) 0.5 L Lymphocytes (20.5 - 51.1 %) 9 L Monocytes (1.7 - 9.3 %) 2 Absolute Monocytes (0.10 - 0.60 /CUMM) 0.2 Absolute Eosinophils (0.0 - 0.7 /CUMM) 0 Absolute Basophils (0.0 - 0.2 /CUMM) 0 Platelet Estimate (ADEQUATE) DECREASED Anisocytosis 1+ PUBS MCHC (33.0 - 37.0 G/DL) Pending 33.5 01/31 01/31 01/30 01/30 0653 0220 2330 2023 Chemistry Sodium (137 - 145 mmol/L) 134 L Potassium (3.5 - 5.1 mmol/L) 4.3 Chloride (98 - 107 mmol/L) 103 Carbon Dioxide (22 - 30 mmol/L) 21 L Anion Gap (5 - 16) 11 BUN (9 - 20 mg/dL) 28 H Creatinine (0.7 - 1.2 mg/dL) 1.1 Estimated GFR (>60 ml/min) > 60 BUN/Creatinine Ratio (7 - 25 %) 25.5 H Lactic Acid (0.7 - 2.1 mmol/L) 1.5 2.5 H 3.6 H Total Bilirubin (0.2 - 1.3 mg/dL) 1.2 Direct Bilirubin (< 0.4 mg/dL) 0.6 H AST (17 - 59 U/L) 29 ALT (21 - 72 U/L) 33 Alkaline Phosphatase (< 127 U/L) 37 Total Protein (6.3 - 8.2 g/dL) 5.5 L Albumin (3.5 - 5.0 g/dL) 3.2 L Hematology CBC w Diff MAN DIFF ORDERED WBC (4.8 - 10.8 /CUMM) 9.3 RBC (4.70 - 6.10 /CUMM) 3.84 L Hgb (14.0 - 18.0 G/DL) 11.4 L Hct (42 - 52 %) 34.3 L MCV (80.0 - 94.0 FL) 89.4 MCH (27.0 - 31.0 PG) 29.6 RDW (11.5 - 14.5 %) 15.1 H Plt Count (130 - 400 /CUMM) 73 L MPV (7.4 - 10.4 FL) 10.4 Gran % (42.2 - 75.2 %) 94.0 H Lymphocytes % (20.5 - 51.1 %) 3.7 L Monocytes % (1.7 - 9.3 %) 2.3 Eosinophils % (0 - 5 %) 0 Basophils % (0.0 - 2.0 %) 0 L Absolute Granulocytes (1.4 - 6.5 /CUMM) 8.7 H Segmented Neutrophils (42.2 - 75.2 %) 62 Band Neutrophils (0.0 - 5.0 %) 31 H Absolute Lymphocytes (1.2 - 3.4 /CUMM) 0.3 L Lymphocytes (20.5 - 51.1 %) 4 L Monocytes (1.7 - 9.3 %) 2 Absolute Monocytes (0.10 - 0.60 /CUMM) 0.2 Absolute Eosinophils (0.0 - 0.7 /CUMM) 0 Basophils (0.0 - 2.0 %) 1 Absolute Basophils (0.0 - 0.2 /CUMM) 0 Anisocytosis 1+ PUBS MCHC (33.0 - 37.0 G/DL) 33.1 01/30 1855 Chemistry Lactic Acid (0.7 - 2.1 mmol/L) 3.4 H Diagnostic Data EKG Results AF, 90bpm, non specific ST abnormalities CXR Results small bilateral pleural effusions Assessment/Plan Assessment/Plan 1. Septic left knee prosthesis, s/o debridement, atb irrgation 2. Atrial fibrillation with controlled VR 3. Hypertension-well controlled 4. Thrombocytopenia-likely related to acute infection. Patien's platelet count was low during last knee infection in December 2015. Platelet cound should improve with treatment of infection 5. H/o HFpEF-currently on 3 L O2, CXR showing small bilateral pleural effusion Plan: repeat CBC tonight and tomorrow am continue metoprolol continue Lasix 60mg po qd, if increase dyspnea or unable to wean off O2-give iv Lasix prn negative fluid balance restart Eliquis in 1-2 days once platelet count starts rising atb as per Dr. Yoder, he will likely need chronic suppressive oral antibiotic therapy. Consult Acknowledgment - Thank you for your consult request.
--- NOTE | 2017-02-01 18:59 | NUR ---
PT RETURNED FROM PACU AT APPROX 1630. JAILENE WRAP DSG TO LLE. A&O, C/O PAIN TO SX SITE, 01/18, MEDICATED WITH ROXICODONE 5MG VSS, CBC BLOOD DRAW DONE FROM PICC LINE, FLUSHES WELL, +BLOOD RETURN PERIPHERAL LINE REMOVED. CONTINUE TO MONITOR.
[2017-02-01 21:38] VITALS: BP 139/83
--- NOTE | 2017-02-02 06:33 | PN- Housestaff ---
JAHAIRA ODELL,KIM 02/02/17 0633: Subjective Follow-up For: Left knee septic arthritis, s/p Irrigation and debridement left total knee arthroplasty; Polyethylene exchange on 02/01/2017. Complaints: no complaints Subjective: I followed up and examined the patient today. He is resting comfortably in his bed, left knee well dressed, offers no complaints. His vitals have been stable, no overnight issues. Review of Systems Constitutional: Reports: no symptoms. Objective Last 24 Hrs of Vital Signs/I&O Vital Signs Date Time Temp Pulse Resp B/P B/P Pulse O2 O2 Flow FiO2 Mean Ox Delivery Rate 02/02 1420 97.6 90 20 142/88 92 Room Air 02/02 1132 90 Room Air 02/02 0929 22 93 Room Air 02/02 0929 22 91 Room Air 02/02 0929 20 93 Room Air 02/02 0929 20 95 Nasal 3.0L Cannula 02/02 0855 80 122/78 02/02 0756 94 Nasal 3.0L Cannula 02/02 0741 98.2 82 20 133/69 93 Room Air 02/02 0000 Nasal 3.0L Cannula 02/01 2138 98.2 85 20 139/83 93 Nasal 3.0L Cannula 02/01 1643 97.5 74 20 132/74 92 Nasal 3.0L Cannula 02/01 1630 92 Nasal 3.0L Cannula Intake & Output 02/02 1600 02/02 0800 02/02 0000 Intake Total 1755 940 9049 Output Total 3400 450 475 Balance -2300 330 1325 Intake, IV 277 114 3044 Intake, Oral 950 480 600 Number 1 0 Bowel Movements Output, Urine 3400 450 475 Physical Exam General Appearance: Alert, Oriented X3, Cooperative, No Acute Distress Other Physical Findings: Skin No Rashes Skin Temp/Moisture Exam: Warm/Dry Lymphatic Cervical nl Cardiovascular Normal S1, Normal S2 Lungs Clear to Auscultation, Normal Air Movement Abdomen Normal Bowel Sounds, Soft, No Tenderness Neurological Grossly intact Extremities Left knee well dressed and is not tender; Right knee normal Vascular Normal Pulses, Pulses Symmetrical Current Medications: Current Medications Sig/Willi Start time Last Medication Dose Route Stop Time Status Admin Acetaminophen 1,000 MG Q8P PRN 02/01 0045 AC IV Amlodipine Besylate 10 MG DAILY 01/31 1000 AC 02/02 PO 0856 Ampicillin 2,000 MG Q6H 01/31 1800 AC 02/02 Sodium Chloride 100 ML IV 1211 Cholecalciferol 1,000 IU 01/31 AC 02/01 PO 2123 Docusate Sodium 100 MG BID 01/30 2200 AC 02/01 PO 2123 Ferrous Sulfate 325 MG BID 01/30 220 AC 02/02 PO 0856 Furosemide 20 MG ONCE ONE 02/02 0830 DC 02/02 IV 02/02 0831 0855 Furosemide 60 MG QAM 01/31 1000 AC 02/02 PO 0855 Hydromorphone HCl 1 MG Q4P PRN 01/31 1030 AC IV Insulin Human Regular 0 TIDAC/HS 02/01 1700 AC 02/02 SC 1211 Lisinopril 40 MG DAILY 01/31 1000 AC 02/02 PO 0856 Metoprolol Succinate 50 MG DAILY 01/31 1000 AC 02/02 PO 0855 Oxycodone HCl 5 MG Q6P PRN 02/01 0045 AC 02/02 PO 0041 Polyethylene Glycol 17 GM DAILY 01/31 1030 AC 01/31 PO 1339 Pravastatin Sodium 80 MG 01/31 AC 02/01 PO 2123 Senna/Docusate Sodium 1 TAB BID 01/31 1024 AC 02/01 PO 2123 Tamsulosin HCl 0.4 MG DAILY 01/31 1000 AC 02/02 PO 0856 Last 24 Hrs of Lab/Bharat Results Last 24 Hrs of Labs/Mics: Laboratory Tests 02/02/17 0630: CBC w Diff MAN DIFF ORDERED, RBC 3.01 L, MCV 88.0, MCH 29.2, RDW 14.3, MPV 10.9 H, Gran % 83.1 H, Lymphocytes % 11.8 L, Monocytes % 4.8, Eosinophils % 0.2, Basophils % 0.1, Absolute Granulocytes 4.2, Segmented Neutrophils 80 H, Band Neutrophils 5, Absolute Lymphocytes 0.6 L, Lymphocytes 11 L, Monocytes 3, Absolute Monocytes 0.2, Eosinophils 1, Absolute Eosinophils 0, Absolute Basophils 0, Platelet Estimate DECREASED, Poikilocytosis 1+, Ovalocytes 1+, PUBS MCHC 33.2 02/01/17 1648: CBC w Diff MAN DIFF ORDERED, RBC 3.54 L, MCV 89.1, MCH 29.9, RDW 14.7 H, MPV 10.6 H, Gran % 89.0 H, Lymphocytes % 8.3 L, Monocytes % 2.7, Eosinophils % 0, Basophils % 0 L, Absolute Granulocytes 6.7 H, Segmented Neutrophils 83 H, Band Neutrophils 6 H, Absolute Lymphocytes 0.6 L, Lymphocytes 11 L, Absolute Monocytes 0.2, Absolute Eosinophils 0, Absolute Basophils 0, Platelet Estimate DECREASED, Polychromasia 1+, Basophilic Stippling 1+, PUBS MCHC 33.6 Assessment/Plan Assessment: 82-year-old male with past medical history of atrial fibrillation on Eliquis, hypertension, hyperlipidemia, recurrent cellulitis, left knee replacement, followed by left knee septic arthritis requiring antibiotics and replacement of hardware, diabetes not on insulin, presented to the emergency department with sudden onset of fever, sweating, left knee pain/swelling/redness starting . He is currently being managed in the general medical floor for the following issues: # Sepsis, secondary to left septic arthritis, s/p Irrigation and debridement left total knee arthroplasty on 02/01/17 Patient underwent Irrigation and debridement left total knee arthroplasty yesterday and has been afebrile. He seem to be responding to the antibiotics. * ID consultation appreciated. Will continue Ampicillin to cover the group B beta Streptococcus that grew on the left knee synovial fluid aspirate. * Patient has been working with PT and can go home with PT/health services when ready. #Thrombocytopenia Patient came in with a plt count of 97,000 which decreased to 73 and 53, which was attributed to septic state initially. But as the patient was responding well to the antibiotics as evident with WBC, Lactic acid, and clinically, it was expected to go further towards normal. But instead it is still significantly low , which prompts us to think of hematologic disorders rather than just sepsis. * Awaiting Hematology consultation. * Peripheral smear study has been requested to the lab. * Dr Clemente, pelletising extruder operator has also suggested to consult Hematology service in case his plt numbers are still low, before starting Eliquis. #Diabetes mellitus Patient is on insulin sliding scale, regular Accu-Cheks and on diabetic diet. #New onset hypoxia Patient was having new onset hypoxia, requiring additional oxygen up to 3L/min. Cause was assumed to be the aggressive fluid resuscitation during his septic state, which has already been discontinued. He is practising with incentive spirometry, received 20mg IV Lasix, and now is saturation is 94% on room air, while ambulating. Not sure about the cause fully. #Rest of his home medication has been continued. #DVT prophylaxis was Eliquis until last night. Currently with ALPS. #Diet: diabetic diet #CODE STATUS is DNR/DNI Problem List: 1. Septic arthritis of knee, left 2. Chronic CHF 3. Diabetes Pain Ratin Pain Location: left knee Pain Goal: Pain 4 or less Pain Plan: prn Tomorrow's Labs & Rationales: CBC, BEP, ESR to follow/track infection in the long run [facility] PI[facility] MD 02/02/17 1317: Attending MD Review Statement Attending Statement Attending MD Statement: examined this patient, discuss w/resident/PA/FACULTY MEMBER, agreed w/resident/PA/FACULTY MEMBER, reviewed EMR data (avail), discussed with nursing, discussed with case mgmt Attending Assessment/Plan: Patient is very excited that physical therapy said that he could go home with home PT and he doesn't need to go to rehabilitation for physical therapy reasons. I did explain septic arthritis and long-term antibiotics. He has strep prosthetic joint septic arthritis and is on IV ampicillin. Will need to clarify with ID duration of antibiotics. He had a PICC line placed for long- term IV antibiotics. The resident was worried about vascular congestion and new O2 requirement and hence gave him 1 dose of IV Lasix in addition to his oral Lasix. Right now his sats are okay off oxygen and will monitor closely. I am worried about the ongoing thrombocytopenia. Initially it was attributed to sepsis. He has A. fib and takes Eliquis but we did confirm with his pelletising extruder operator that he is a low chads score and we could comfortably stop the Eliquis pre procedure. However now his platelet count continues to be low of unclear etiology. His coags are normal and I don't believe his smear shows anything worrisome. We'll call a hem consult to help us with the thrombocytopenia. I'll hold off on restarting the Eliquis until we clarify the whole thrombocytopenia issue.
[2017-02-02 07:41] VITALS: BP 133/69
--- NOTE | 2017-02-02 08:07 | PN- Orthopedic ---
See Addendum Subjective Subjective: Pt. has no complaints. He was able to get up from bed to chair with assisstance States his pain is controlled with oral meds. Objective Vital Signs and I&Os Vital Signs Date Time Temp Pulse Resp B/P B/P Pulse O2 O2 Flow FiO2 Mean Ox Delivery Rate 02/02 0756 94 Nasal 3.0L Cannula 02/02 0741 98.2 82 20 133/69 93 Room Air 02/02 0000 Nasal 3.0L Cannula 02/01 2138 98.2 85 20 139/83 93 Nasal 3.0L Cannula 02/01 1643 97.5 74 20 132/74 92 Nasal 3.0L Cannula 02/01 1630 92 Nasal 3.0L Cannula 02/01 1202 98.2 88 20 132/78 94 Nasal 3.0L Cannula 02/01 1009 20 95 Nasal 3.0L Cannula 02/01 0927 122/78 02/01 0927 70 122/68 Intake & Output 02/02 1600 02/02 0800 02/02 0000 02/01 1600 02/01 0800 02/01 0000 Intake Total 1800 995 800 6696 Output Total 475 506 289 8912 Balance 1325 -300 350 600 Intake, IV 1200 375 600 800 Intake, Oral 600 800 Number 1 Bowel Movements Output, Urine 475 126 270 5311 Alert, oriented, sitting in chair comfortable COR reg Lungs; not assessed abdomen benign LLE with moderate edema, no calf tenderness, wrapped in bandage.Foot warm to touch with approrpiate distal sensation and perfusion. Assessment/Plan Assessment/Plan s/p L knee washout, poly exchange POD#1 for infection pt. is stable.No signs of systemic sepsis No fever or leukocytosis. OR cx preliminary negative so far.Covered with Ampicillin IV LLE with edema as expected. Adequate perfusion distally PT eval. pending. Increase activity as tolerated/WBAT Pain controlled with current regimen
[2017-02-02 08:30] LABS: ABSOLUTE BASOPHIL COUNT 0 /CUMM (0.0-0.2); ABSOLUTE EOSINOPHIL COUNT 0 /CUMM (0.0-0.7); ABSOLUTE GRANULOCYTE CT 4.2 /CUMM (1.4-6.5); ABSOLUTE LYMPH COUNT 0.6 /CUMM (1.2-3.4); ABSOLUTE MONOCYTE COUNT 0.2 /CUMM (0.10-0.60); BASOPHIL % 0.1 % (0.0-2.0); EOSINOPHIL % 0.2 % (0-5); GRANULOCYTE % 83.1 % (42.2-75.2); MEAN CORPUSCULAR HGB 29.2 PG (27.0-31.0); MEAN CORPUSCULAR HGB CONC 33.2 G/DL (33.0-37.0); MEAN PLATELET VOLUME 10.9 FL (7.4-10.4); PLATELET COUNT 53 /CUMM (130-400); RBC DISTRIBUTION WIDTH 14.3 % (11.5-14.5); RED BLOOD CELL CT 3.01 /CUMM (4.70-6.10)
--- NOTE | 2017-02-02 08:57 | NUR ---
NURSING NOTE: PER 372 OK TO GIVEN SCHEDULED PO LASIX AND ONE TIME IV LASIX AT THIS TIME, PT ON 3L NC , OCCAS WHEEZE, NOT NOTED AT THIS TIME, PT DENIES DISTRESS, PT USING INSENTIVE SPIRIOMETER REGULARLY. DENIES DISTRESS, WILL TRY TO TAPER O2 THIS SHIFT.
[2017-02-02 09:01] LABS: HEMATOCRIT 26.5 % (42-52)
--- NOTE | 2017-02-02 09:29 | NUR ---
NURSING NOTE: O2 3L NC AT REST 95%, ROOM AIR AT REST 93%, PT AMBULATED IN HALLWAY WITH P.T. ON ROOM AIR, O2 SATS REMAINED AT 91-92%. PT DENIES SHORTNESS OF BREATH, ABLE TO SPEAK IN FULL SENTENCES. O2 DCD AT THIS TIME, PT STILL USING IS, INSTRUCTED TO CALL FOR ASSIST/DISTRESS, BED ALARM IN PLACE. NEEDS IN REACH, SAFETY MAINTAINED
--- NOTE | 2017-02-02 14:14 | NUR ---
NURSING SHIFT NOTE; PT REMAINS AWAKE, A/OX3, ROOM AIR SATS REMAIN AT 92%, PT DENIES DISTRESS, RECEIVING IV ANTIBX Q 6 HR VIA PICC, +BLOOD RETURN, PT RESTING IN BED AT THIS TIME, BED ALARM IN PLACE, DENIES PAIN, ICE PACK TO L KNEE; JAILENE WRAP C/D/I. ALPS IN PLACE.PT VOIDED CLEAR YELLOW URINE IN URINAL; SEE OUTPUT DOCUEMNTED AFTER RECEIVING HIS LASIX. +CMS. TOLERATING DIET, NEEDS IN REACH. SAFETY MAINTAINED
[2017-02-02 14:20] VITALS: BP 142/88
--- NOTE | 2017-02-02 14:40 | PN- Infect Dx ---
Subjective Subjective: Afebrile without complaints Objective Last 24 Hrs of Vital Signs/I&O Vital Signs Date Time Temp Pulse Resp B/P B/P Pulse O2 O2 Flow FiO2 Mean Ox Delivery Rate 02/02 1420 97.6 90 20 142/88 92 Room Air 02/02 1132 90 Room Air 02/02 0929 22 93 Room Air 02/02 0929 22 91 Room Air 02/02 0929 20 93 Room Air 02/02 0929 20 95 Nasal 3.0L Cannula 02/02 0855 80 122/78 02/02 0756 94 Nasal 3.0L Cannula 02/02 0741 98.2 82 20 133/69 93 Room Air 02/02 0000 Nasal 3.0L Cannula 02/01 2138 98.2 85 20 139/83 93 Nasal 3.0L Cannula 02/01 1643 97.5 74 20 132/74 92 Nasal 3.0L Cannula 02/01 1630 92 Nasal 3.0L Cannula Intake & Output 02/02 1600 02/02 0800 02/02 0000 Intake Total 5210 527 1942 Output Total 3400 450 475 Balance -2300 330 1325 Intake, IV 884 813 6575 Intake, Oral 950 480 600 Number 1 0 Bowel Movements Output, Urine 3400 450 475 Physical Exam Other Physical Findings: He appears comfortable in no acute distress Lungs are clear Heart regular rhythm with no murmur Extremities left knee dressing intact; PICC in the right upper extremity with no inflammation at the site; mild edema right lower extremity Results Last 24 Hours of Lab Results: Laboratory Tests 02/02 02/01 0630 1648 Hematology CBC w Diff MAN DIFF ORDERED MAN DIFF ORDERED WBC (4.8 - 10.8 /CUMM) 5.0 7.6 RBC (4.70 - 6.10 /CUMM) 3.01 L 3.54 L Hgb (14.0 - 18.0 G/DL) 8.8 L 10.6 L Hct (42 - 52 %) 26.5 L 31.6 L MCV (80.0 - 94.0 FL) 88.0 89.1 MCH (27.0 - 31.0 PG) 29.2 29.9 RDW (11.5 - 14.5 %) 14.3 14.7 H Plt Count (130 - 400 /CUMM) 53 L 63 L MPV (7.4 - 10.4 FL) 10.9 H 10.6 H Gran % (42.2 - 75.2 %) 83.1 H 89.0 H Lymphocytes % (20.5 - 51.1 %) 11.8 L 8.3 L Monocytes % (1.7 - 9.3 %) 4.8 2.7 Eosinophils % (0 - 5 %) 0.2 0 Basophils % (0.0 - 2.0 %) 0.1 0 L Absolute Granulocytes (1.4 - 6.5 /CUMM) 4.2 6.7 H Segmented Neutrophils (42.2 - 75.2 %) 80 H 83 H Band Neutrophils (0.0 - 5.0 %) 5 6 H Absolute Lymphocytes (1.2 - 3.4 /CUMM) 0.6 L 0.6 L Lymphocytes (20.5 - 51.1 %) 11 L 11 L Monocytes (1.7 - 9.3 %) 3 Absolute Monocytes (0.10 - 0.60 /CUMM) 0.2 0.2 Eosinophils (0 - 5.0 %) 1 Absolute Eosinophils (0.0 - 0.7 /CUMM) 0 0 Absolute Basophils (0.0 - 0.2 /CUMM) 0 0 Platelet Estimate (ADEQUATE) DECREASED DECREASED Polychromasia 1+ Poikilocytosis 1+ Basophilic Stippling 1+ Ovalocytes 1+ PUBS MCHC (33.0 - 37.0 G/DL) 33.2 33.6 Last 24 Hours of Bharat Results: OR cultures February 01 labeled left knee tissue and left knee fluid both negative after 1 day Blood cultures 2 January 30 negative Assessment/Plan Impression: Stable status post irrigation and debridement of a left total knee arthroplasty, with polyethylene exchange, for an infected left knee prosthesis secondary to Group B strep with temperatures and white blood cell count now normal. His platelet count continues to decrease likely secondary to sepsis. He will require a six-week course of IV antibiotics, followed by a prolonged course (for example 6 months) of oral antibiotics. Suggestion: 1. Follow-up OR cultures 2. Repeat ESR 3. Continue Ampicillin
--- NOTE | 2017-02-02 15:01 | Patient Discharge Instructions ---
Discharge Instructions General Discharge Information You were seen/treated for: Left knee septic arthritis You had these procedures: Irrigation and debridement left total knee arthroplasty; Polyethylene exchange on 02/01/2017. Watch for these problems: Redness, swelling, excessive pain, pus/leak from the operation site, high-grade fever. Special Instructions: Wound care as instructed. You have a PICC line (IV line) to receive antibiotics. Please get your antibiotics till March 15, 2017. Please get blood work - complete blood count (CBC) on Monday and the results to be sent to Dr nancy Clemente. Nurse can draw blood from PICC line. Follow-up with infectious disease doctor Aung Yoder MD within 2 weeks of discharge. Please get weekly blood test (ESR) and the results sent to Dr Yudelka Yoder. Follow-up with orthopedics doctor Jamar Whiteside MD within 1 week of discharge. Follow-up with your primary care physician within 2 weeks of discharge. Return to emergency if symptoms worsen. Diet Continue normal diet: No Recommended Diet: Diabetic Activity Full Activity/No Limits: No Activity Self Limited: Yes Acute Coronary Syndrome Inclusion Criteria At DC or during hospital stay patient has or had the following: ACS DIAGNOSIS No Discharge Core Measures Meds if any: Prescribed or Continued at Discharge Meds if any: NOT Prescribed or Continued at Discharge Congestive Heart Failure Inclusion Criteria At DC or during hospital stay patient has or had the following: CHF DIAGNOSIS No Discharge Core Measures Meds if any: Prescribed or Continued at Discharge Meds if any: NOT Prescribed or Continued at Discharge Cerebrovascular accident Inclusion Criteria At DC or during hospital stay patient has or had the following: CVA/TIA Diagnosis No Discharge Core Measures Meds if any: Prescribed or Continued at Discharge Meds if any: NOT Prescribed or Continued at Discharge Venous thromboembolism Inclusion Criteria VTE Diagnosis No VTE Type NONE VTE Confirmed by (Test) NONE Discharge Core Measures - Per Current guidelines, there needs to be overlap - treatment for the first 5 days of Warfarin therapy. - If discharged on Warfarin prior to 5 days of - overlap therapy, the patient will need to be - assessed for post discharge needs including - *Post discharge parental anticoagulation - *Warfarin and/or parental anticoagulation education - *Follow up date to check INR post discharge At least 5 days overlap therapy as Inpatient No Meds if any: Prescribed or Continued at Discharge Note: Overlap Therapy is Warfarin and Anticoagulant Meds if any: NOT Prescribed or Continued at Discharge
[2017-02-02 21:30] VITALS: BP 142/82
[2017-02-03 06:45] VITALS: BP 163/82
[2017-02-03 08:15] LABS: ABSOLUTE BASOPHIL COUNT 0 /CUMM (0.0-0.2); ABSOLUTE EOSINOPHIL COUNT 0.1 /CUMM (0.0-0.7); ABSOLUTE GRANULOCYTE CT 4.3 /CUMM (1.4-6.5); ABSOLUTE LYMPH COUNT 0.9 /CUMM (1.2-3.4); ABSOLUTE MONOCYTE COUNT 0.4 /CUMM (0.10-0.60); BASOPHIL % 0.2 % (0.0-2.0); EOSINOPHIL % 1.3 % (0-5); GRANULOCYTE % 74.3 % (42.2-75.2); MEAN CORPUSCULAR HGB 29.9 PG (27.0-31.0); MEAN PLATELET VOLUME 10.6 FL (7.4-10.4); PLATELET COUNT 78 /CUMM (130-400); RBC DISTRIBUTION WIDTH 14.4 % (11.5-14.5); RED BLOOD CELL CT 3.52 /CUMM (4.70-6.10); WHITE BLOOD CELL COUNT 5.7 /CUMM (4.8-10.8)
--- NOTE | 2017-02-03 08:32 | PN- Housestaff ---
See Addendum JAHAIRA ODELL,KIM 02/03/17 0831: Subjective Follow-up For: Left knee septic arthritis, s/p Irrigation and debridement left total knee arthroplasty; Polyethylene exchange on 02/01/2017. Subjective: Patient followed up by me today. He is not in distress, offers no complaints, vital signs stable, no overnight issues. Review of Systems Constitutional: Reports: no symptoms. Objective Last 24 Hrs of Vital Signs/I&O Vital Signs Date Time Temp Pulse Resp B/P B/P Pulse O2 O2 Flow FiO2 Mean Ox Delivery Rate 02/03 1429 98.4 90 20 162/83 91 Room Air 02/03 0930 80 132/70 02/03 0800 93 Room Air 02/03 0645 98.3 78 20 163/82 91 Room Air 02/03 0000 Room Air Intake & Output 02/03 1600 02/03 0800 02/03 0000 Intake Total 1000 780 100 Output Total 900 1025 550 Balance 100 -245 -450 Intake, IV 100 300 100 Intake, Oral 900 480 Number 0 0 Bowel Movements Output, Urine 900 1025 550 Physical Exam General Appearance: Alert, Oriented X3, Cooperative, No Acute Distress Other Physical Findings: Skin No Rashes Skin Temp/Moisture Exam: Warm/Dry Lymphatic Cervical nl Cardiovascular Normal S1, Normal S2 Lungs Clear to Auscultation, Normal Air Movement Abdomen Normal Bowel Sounds, Soft, No Tenderness Neurological Grossly intact Extremities Left knee well dressed and is not tender; Right knee normal Vascular Normal Pulses, Pulses Symmetrical Current Medications: Current Medications Sig/Willi Start time Last Medication Dose Route Stop Time Status Admin Acetaminophen 1,000 MG Q8P PRN 02/01 0045 AC IV Amlodipine Besylate 10 MG DAILY 01/31 1000 AC 02/03 PO 0931 Ampicillin 2,000 MG Q6H 01/31 1800 AC 02/03 Sodium Chloride 100 ML IV 1709 Apixaban 5 MG BID 02/03 2200 AC 02/03 PO 2132 Cholecalciferol 1,000 IU 01/31 AC 02/03 PO 2131 Docusate Sodium 100 MG BID 01/30 2200 AC 02/02 PO 2116 Ferrous Sulfate 325 MG BID 01/30 2200 AC 02/03 PO 213 Furosemide 60 MG QAM 01/31 1000 AC 02/03 PO 0931 Hydromorphone HCl 1 MG Q4P PRN 01/31 1030 AC IV Insulin Human Regular 4 UNITS .STK-MED ONE 02/03 1149 DC IV 02/03 1150 Insulin Human Regular 0 TIDAC/HS 02/01 1700 AC 02/03 SC 1709 Lisinopril 40 MG DAILY 01/31 1000 AC 02/03 PO 0930 Melatonin 5 MG ONCE ONE 02/03 1830 DC 02/03 PO 02/03 1831 2133 Metoprolol Succinate 50 MG DAILY 01/31 1000 AC 02/03 PO 0931 Oxycodone HCl 5 MG Q6P PRN 02/01 0045 AC 02/03 PO 0938 Patient Medication 1 ED .STK-MED ONE 02/03 1316 DC Teaching ED 02/03 1317 Polyethylene Glycol 17 GM DAILY 01/31 1030 AC 01/31 PO 1339 Pravastatin Sodium 80 MG 2200 01/31 2200 AC 02/03 PO 2132 Senna/Docusate Sodium 1 TAB BID 01/31 1024 AC 02/02 PO 2118 Tamsulosin HCl 0.4 MG DAILY 01/31 1000 AC 02/03 PO 0930 Last 24 Hrs of Lab/Bharat Results Last 24 Hrs of Labs/Mics: Laboratory Tests 02/03/17 0525: Anion Gap 11, Estimated GFR > 60, BUN/Creatinine Ratio 23.3, CBC w Diff NO MAN DIFF REQ, RBC 3.52 L, MCV 88.0, MCH 29.9, RDW 14.4, MPV 10.6 H, Gran % 74.3, Lymphocytes % 16.4 L, Monocytes % 7.8, Eosinophils % 1.3, Basophils % 0.2, Absolute Granulocytes 4.3, Absolute Lymphocytes 0.9 L, Absolute Monocytes 0.4, Absolute Eosinophils 0.1, Absolute Basophils 0, PUBS MCHC 34.0, ESR Westergren 63 H Assessment/Plan Assessment: 82-year-old male with past medical history of atrial fibrillation on Eliquis, hypertension, hyperlipidemia, recurrent cellulitis, left knee replacement, followed by left knee septic arthritis requiring antibiotics and replacement of hardware, diabetes not on insulin, presented to the emergency department with sudden onset of fever, sweating, left knee pain/swelling/redness starting . He is currently being managed in the general medical floor for the following issues: # Sepsis, secondary to left septic arthritis, s/p Irrigation and debridement left total knee arthroplasty on 02/01/17 Patient underwent Irrigation and debridement left total knee arthroplasty yesterday and has been afebrile. He seem to be responding well to the antibiotics. * ID consultation appreciated. Will continue Ampicillin to cover the group B beta Streptococcus that grew on the left knee synovial fluid aspirate. * Patient should get IV ampicillin until March 15, 2017. Within that timeframe, patient should follow-up with Aung Yoder MD to discuss about long-term oral antibacterial therapy. * Patient has been working with PT and can go home with PT/health services when ready. #Thrombocytopenia, 2/2 sepsis Patient came in with a plt count of 97,000 which decreased to 73 and 53, which was attributed to septic state initially. But as the patient was responding well to the antibiotics as evident with WBC, Lactic acid, and clinically, it was expected to go further towards normal. But instead it is still significantly low , which prompts us to think of hematologic disorders rather than just sepsis. * per Hematology consultation, this is likely due to sepsis with a pattern of going up and down. * Dr Clemente, cinder worker has also suggested to consult Hematology service in case his plt numbers are still low, before starting Eliquis. * Patient clearly is not in DIC, ITP, HUS, nor was on heparin. #Diabetes mellitus Patient is on insulin sliding scale, regular Accu-Cheks and on diabetic diet. #New onset hypoxia, resolved #Rest of his home medication has been continued. #DVT prophylaxis was Eliquis until last night. Currently with ALPS. #Diet: diabetic diet #CODE STATUS is DNR/DNI Problem List: 1. Septic arthritis of knee, left 2. Thrombocytopenia 3. Diabetes Pain Ratin Pain Location: left knee Pain Goal: Pain 4 or less Pain Plan: prn Tomorrow's Labs & Rationales: CBC DOROTHEA ODELL,[facility] 02/03/17 1101: Attending MD Review Statement Attending Statement Attending MD Statement: examined this patient, discuss w/resident/PA/RESPIRATORY THERAPY ASSISTANT, agreed w/resident/PA/RESPIRATORY THERAPY ASSISTANT, discussed with family, reviewed EMR data (avail), discussed with nursing, discussed with case mgmt Attending Assessment/Plan: Patient is very keen on going home today. However everything has not been set up with a home infusion and his family is not comfortable yet with managing everything with the IV antibiotics and the home situation. This is an 82-year-old male with a past medical history of atrial fibrillation on (low-dose) Eliquis, hypertension, hyperlipidemia and h/o prosthetic joint infections. He had a prosthetic joint septic arthritis that was treated one year ago and the prosthesis was replaced and he now comes in with a strep septic arthritis of the prosthetic joint. He was taken to the OR washed out and the plan is for 6 weeks of IV antibiotics per ID with possible long-term oral chronic suppression after the 6 weeks. He was cleared by physical therapy to go home and his 2 daughters are setting up everything for him to get his home infusion with the 6 weeks of IV antibiotics. He came in with SIRS and in that setting had thrombocytopenia and we were worried about restarting the Eliquis till the platelet count stabilized. We had heme see him and his cinder worker Dr. Clemente mentioned that the platelet count did the similar thing on his last infection. Now that the platelet count is rising we will restart his Eliquis and plan for follow-up outpatient blood tests on Monday. If everything is set up for the home infusion then he believe tomorrow with close outpatient follow- up.
--- NOTE | 2017-02-03 10:28 | Cons- Hematology ---
General Information and HPI Consulting Request Date of Consult: 02/03/17 Requested By: MERCY PIEDRA MD Reason for Consult: thrombocytopenia Source of Information: patient, old records Exam Limitations: no limitations History of Present Illness: Mr. Cook is a 82-year-old male with DM, atrial fibrillation on Eliquis, CHF, BPH, and recurrent cellulitis, bilateral knee replacements complicated by left knee prostehesis infection who presented with fever and chills. He noted pain and swelling in his left leg. He was noted to be febrile at 100.3 on admission. He had platelets of 97,000 and 18% bands. Arthrocentesis of the left knee demonstrated GPC. He underwent irrigation and debridement of the left knee on 02/01/2017. His platelet count continues to decrease to 53,000 on 02/02/2017. He feels well currently. He has no new symptoms. He has no bleeding. He is currently on antibiotic with ampicillin and previously on vancomycin. Allergies/Medications Allergies: Coded Allergies: No Known Allergies (01/30/17) Home Med List: Amlodipine Besylate (Norvasc) 10 MG TABLET 1 TAB PO DAILY htn (Reported) Cholecalciferol (Vitamin D3) (Vitamin D) 1,000 UNIT TABLET 1 TAB PO DAILY SUPPLEMENT (Reported) Docusate Sodium (Colace) 100 MG CAPSULE 1 CAP PO BID constipation Ferrous Sulfate 325 MG TABLET 1 TAB PO BID anemia available over the counter Furosemide 20 MG TABLET 3 TAB PO QAM DIURETIC (Reported) Linagliptin (Tradjenta) 5 MG TABLET 1 TAB PO DAILY DIABETES (Reported) Lisinopril (Prinivil) 20 MG TABLET 1 TAB PO QPM HTN (Reported) Lisinopril 20 MG TABLET 1 TAB PO QAM BP (Reported) Metformin HCl (Glucophage) 1,000 MG TABLET 1 TAB PO BID GLUCOSE CONTROL ( Reported) Metoprolol Succinate 50 MG TAB.ER.24H 1 TAB PO DAILY HEART/BP (Reported) Multivitamin,Ther and Minerals (Multivitamins With Minerals Hp) 1 EACH CAPSULE 1 CAP PO QAM SUPPLEMENT (Reported) Oxycodone HCl/Acetaminophen (Percocet 5-325 MG Tablet) 1 EACH TABLET 2 TAB PO Q6P PRN PAIN Oxycodone HCl/Acetaminophen (Percocet 5-325 MG Tablet) 1 EACH TABLET 1-2 TAB PO Q4-6 PRN pain Polyethylene Glycol 3350 (Miralax) 17 GM POWD.PACK 1 PAC PO DAILY PRN CONSTIPATION dissolve in water Potassium Chloride 20 MEQ TAB.ER.PRT 1 TAB PO QAM SUPPLEMENT (Reported) Pravastatin Sodium (Pravachol) 80 MG TABLET 1 TAB PO QPM CHOLESTEROL ( Reported) Sennosides/Docusate Sodium (Senokot-S Tablet) 1 EACH TABLET 1 TAB PO BID PRN CONSTIPATION Tamsulosin HCl (Flomax) 0.4 MG CAP.ER.24H 1 CAP PO DAILY PROSTATE (Reported) Current Medications: Current Medications Sig/Willi Start time Last Medication Dose Route Stop Time Status Admin Acetaminophen 1,000 MG Q8P PRN 02/01 0045 AC IV Amlodipine Besylate 10 MG DAILY 01/31 1000 AC 02/03 PO 0931 Ampicillin 2,000 MG Q6H 01/31 1800 AC 02/03 Sodium Chloride 100 ML IV 05 Cholecalciferol 1,000 IU 01/31 2200 AC 02/02 PO 2117 Docusate Sodium 100 MG BID 01/30 220 AC 02/02 PO 2116 Ferrous Sulfate 325 MG BID 01/30 2200 AC 02/03 PO 0931 Furosemide 60 MG QAM 01/31 1000 AC 02/03 PO 0931 Hydromorphone HCl 1 MG Q4P PRN 01/31 1030 AC IV Insulin Human Regular 2 UNITS .STK-MED ONE 02/02 1659 DC IV 02/02 1700 Insulin Human Regular 4 UNITS .STK-MED ONE 02/02 1208 DC IV 02/02 1209 Insulin Human Regular 0 TIDAC/HS 02/01 1700 AC 02/02 SC 1701 Lisinopril 40 MG DAILY 01/31 1000 AC 02/03 PO 0930 Metoprolol Succinate 50 MG DAILY 01/31 1000 AC 02/03 PO 0931 Oxycodone HCl 5 MG Q6P PRN 02/01 0045 AC 02/03 PO 0938 Polyethylene Glycol 17 GM DAILY 01/31 1030 AC 01/31 PO 1339 Pravastatin Sodium 80 MG 0 01/31 2200 AC 02/02 PO 211 Senna/Docusate Sodium 1 TAB BID 01/31 1024 AC 02/02 PO 211 Tamsulosin HCl 0.4 MG DAILY 01/31 1000 AC 02/03 PO 0930 Review of Systems Review of Systems Constitutional: Reports: weakness. Denies: chills, fever. Cardiovascular: Denies: chest pain. Respiratory: Denies: short of breath. GI: Denies: diarrhea. Genitourinary: Denies: dysuria. Musculoskeletal: Reports: back pain, joint pain, joint swelling. Skin: Reports: erythema. Hematologic/Endocrine: Reports: bruising. Denies: bleeding. 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 Psychosocial History Who Do You Live With? self Services at Home: None Primary Language: Ukrainian Smoking Status: Never Smoked ETOH Use: denies use Illicit Drug Use: denies illicit drug use Functional Ability ADLs Independent: dressing, eating, toileting, bathing. Ambulation: independent IADLs Independent: shopping, housework, finances, food prep, telephone, transportation , medication admin. ECHO Results (as available) EF% 55 Exam & Diagnostic Data Vital Signs and I&O Vital Signs Date Time Temp Pulse Resp B/P B/P Pulse O2 O2 Flow FiO2 Mean Ox Delivery Rate 02/03 0930 80 132/70 02/03 0645 98.3 78 20 163/82 91 Room Air 02/03 0000 Room Air 02/02 2130 98.1 80 20 142/82 92 02/02 1600 96 Room Air 02/02 1420 97.6 90 20 142/88 92 Room Air 02/02 1132 90 Room Air Intake & Output 02/03 1600 02/03 0800 02/03 0000 Intake Total 780 100 Output Total 1025 550 Balance -245 -450 Intake, IV 300 100 Intake, Oral 480 Number 0 Bowel Movements Output, Urine 1025 550 Physical Exam General Appearance: alert, awake, comfortable Head: atraumatic, normal appearance Ears, Nose, Throat: normal pharynx Respiratory: normal breath sounds, chest non-tender, crackles Cardiovascular: edema, irregularly irregular Gastrointestinal: normal bowel sounds, soft, non-tender Extremities: edema bilaterally, left knee edema, left leg in JAILENE wrapping Skin: warm/dry Other Physical Findings: RUE with PICC in place, no bleeding Last 48 Hours of Lab Results: Laboratory Tests 02/03 02/02 0525 0630 Chemistry Sodium (137 - 145 mmol/L) 138 Potassium (3.5 - 5.1 mmol/L) 3.5 Chloride (98 - 107 mmol/L) 102 Carbon Dioxide (22 - 30 mmol/L) 25 Anion Gap (5 - 16) 11 BUN (9 - 20 mg/dL) 21 H Creatinine (0.7 - 1.2 mg/dL) 0.9 Estimated GFR (>60 ml/min) > 60 BUN/Creatinine Ratio (7 - 25 %) 23.3 Hematology CBC w Diff NO MAN DIFF REQ MAN DIFF ORDERED WBC (4.8 - 10.8 /CUMM) 5.7 5.0 RBC (4.70 - 6.10 /CUMM) 3.52 L 3.01 L Hgb (14.0 - 18.0 G/DL) 10.5 L 8.8 L Hct (42 - 52 %) 31.0 L 26.5 L MCV (80.0 - 94.0 FL) 88.0 88.0 MCH (27.0 - 31.0 PG) 29.9 29.2 RDW (11.5 - 14.5 %) 14.4 14.3 Plt Count (130 - 400 /CUMM) 78 L 53 L MPV (7.4 - 10.4 FL) 10.6 H 10.9 H Gran % (42.2 - 75.2 %) 74.3 83.1 H Lymphocytes % (20.5 - 51.1 %) 16.4 L 11.8 L Monocytes % (1.7 - 9.3 %) 7.8 4.8 Eosinophils % (0 - 5 %) 1.3 0.2 Basophils % (0.0 - 2.0 %) 0.2 0.1 Absolute Granulocytes (1.4 - 6.5 /CUMM) 4.3 4.2 Segmented Neutrophils (42.2 - 75.2 %) 80 H Band Neutrophils (0.0 - 5.0 %) 5 Absolute Lymphocytes (1.2 - 3.4 /CUMM) 0.9 L 0.6 L Lymphocytes (20.5 - 51.1 %) 11 L Monocytes (1.7 - 9.3 %) 3 Absolute Monocytes (0.10 - 0.60 /CUMM) 0.4 0.2 Eosinophils (0 - 5.0 %) 1 Absolute Eosinophils (0.0 - 0.7 /CUMM) 0.1 0 Absolute Basophils (0.0 - 0.2 /CUMM) 0 0 Platelet Estimate (ADEQUATE) DECREASED Poikilocytosis 1+ Ovalocytes 1+ PUBS MCHC (33.0 - 37.0 G/DL) 34.0 33.2 ESR Westergren (0 - 10 MM) Pending 02/01 1648 Hematology CBC w Diff MAN DIFF ORDERED WBC (4.8 - 10.8 /CUMM) 7.6 RBC (4.70 - 6.10 /CUMM) 3.54 L Hgb (14.0 - 18.0 G/DL) 10.6 L Hct (42 - 52 %) 31.6 L MCV (80.0 - 94.0 FL) 89.1 MCH (27.0 - 31.0 PG) 29.9 RDW (11.5 - 14.5 %) 14.7 H Plt Count (130 - 400 /CUMM) 63 L MPV (7.4 - 10.4 FL) 10.6 H Gran % (42.2 - 75.2 %) 89.0 H Lymphocytes % (20.5 - 51.1 %) 8.3 L Monocytes % (1.7 - 9.3 %) 2.7 Eosinophils % (0 - 5 %) 0 Basophils % (0.0 - 2.0 %) 0 L Absolute Granulocytes (1.4 - 6.5 /CUMM) 6.7 H Segmented Neutrophils (42.2 - 75.2 %) 83 H Band Neutrophils (0.0 - 5.0 %) 6 H Absolute Lymphocytes (1.2 - 3.4 /CUMM) 0.6 L Lymphocytes (20.5 - 51.1 %) 11 L Absolute Monocytes (0.10 - 0.60 /CUMM) 0.2 Absolute Eosinophils (0.0 - 0.7 /CUMM) 0 Absolute Basophils (0.0 - 0.2 /CUMM) 0 Platelet Estimate (ADEQUATE) DECREASED Polychromasia 1+ Basophilic Stippling 1+ PUBS MCHC (33.0 - 37.0 G/DL) 33.6 Assessment/Plan Assessment: Mr. Cook is an 82-year-old male with atrial fibrillation on Eliquis, hypertension, hyperlipidemia, recurrent cellulitis, left knee replacement, followed by left knee septic arthritis requiring antibiotics and replacement of hardware, and diabetes presented to the ED with fever, sweating, left knee pain/ swelling/redness starting 01/29/17. He underwent I&D of left knee arhtroplasty on 02/01/2017. Hematology was consulted for worsening thrombocytopenia. His platelet count was 53,000 on 02/02 and 97,000 on admission. His peripheral blood smear was reviewed and notable for large to giant platelets but also decreased platelet count. This is concerning for a peripheral destructive process. His platelet count is improved today. His thrombocytopenia is likely multifactorial to include sepsis and antibiotic induced. He has similar finding back in 2015. Platelet count recovered after treatment. It is unlikely that he has an underlying hematologic disorder. He can be monitored for now. Recommendations: 1. Monitor CBC 2. Complete antibiotic as per ID 3. Anticoagulation as per cardiology 4. Follow up as outpatien if platelet count does not recover otherwise follow up with PCP Problem List: 1. Septic arthritis of knee, left 2. Left leg cellulitis 3. Thrombocytopenia Other Findings/Comments: Please call [phone] with any issues. Consult Acknowledgment - Thank you for your consult request.
--- NOTE | 2017-02-03 11:53 | PN- Orthopedic ---
See Addendum Subjective Subjective: POD#2 S/P LEFT TKA WASHOUT W/POLY EXCHANGE COMFORTABLE TODAY NO COMPLAINTS AMBULATING WITH PT ON AMPICILLIN TOLERATING DIET Objective Vital Signs and I&Os Vital Signs Date Time Temp Pulse Resp B/P B/P Pulse O2 O2 Flow FiO2 Mean Ox Delivery Rate 02/03 0930 80 132/70 02/03 0800 93 Room Air 02/03 0645 98.3 78 20 163/82 91 Room Air 02/03 0000 Room Air 02/02 2130 98.1 80 20 142/82 92 02/02 1600 96 Room Air 02/02 1420 97.6 90 20 142/88 92 Room Air Intake & Output 02/03 1600 02/03 0800 02/03 0000 02/02 1600 02/02 0800 02/02 0000 Intake Total 867 058 2415 780 1800 Output Total 300 8985 946 2053 450 475 Balance -300 -245 -450 -2300 330 1325 Intake, IV 300 100 976 581 5230 Intake, Oral 480 950 480 600 Number 0 1 0 Bowel Movements Output, Urine 300 0296 315 7700 450 475 Physical Exam: LEFT LE: DRSG CHANGED, WOUND C/D/I NO CELLULITIS PRESENT NO CALF TENDERNESS DISTAL CMS INTACT Assessment/Plan Assessment/Plan ORTHO STABLE PLAN CONT IV ABX AWAIT FINAL CX'S FOR HOME ABX COURSE MAY BE WBAT LEFT LEG ORTHO F/U WITH DR HERNANDEZ
[2017-02-03] MEDS ORDERED: AMPICILLIN SODIU2 G1 IV (12:11)
--- NOTE | 2017-02-03 12:17 | NUR ---
NURSING NOTE:IV AMPICILLIN PRESCRIPTION GIVEN TO ANDREAS FROM THE [facility] FOR PENDING DC HOME TOMORROW. KIM ODELL AWARE
--- NOTE | 2017-02-03 12:21 | PN- Infect Dx ---
Subjective Subjective: Afebrile without complaints Objective Last 24 Hrs of Vital Signs/I&O Vital Signs Date Time Temp Pulse Resp B/P B/P Pulse O2 O2 Flow FiO2 Mean Ox Delivery Rate 02/03 0930 80 132/70 02/03 0800 93 Room Air 02/03 0645 98.3 78 20 163/82 91 Room Air 02/03 0000 Room Air 02/02 2130 98.1 80 20 142/82 92 02/02 1600 96 Room Air 02/02 1420 97.6 90 20 142/88 92 Room Air Intake & Output 02/03 1600 02/03 0800 02/03 0000 Intake Total 780 100 Output Total 300 1025 550 Balance -300 -245 -450 Intake, IV 300 100 Intake, Oral 480 Number 0 Bowel Movements Output, Urine 300 1025 550 Physical Exam Other Physical Findings: He appears comfortable in no acute distress Lungs are clear Extremities left leg dressing intact; PICC in the right upper extremity with no inflammation at the site Results Last 24 Hours of Lab Results: Laboratory Tests 02/03 525 Chemistry Sodium (137 - 145 mmol/L) 138 Potassium (3.5 - 5.1 mmol/L) 3.5 Chloride (98 - 107 mmol/L) 102 Carbon Dioxide (22 - 30 mmol/L) 25 Anion Gap (5 - 16) 11 BUN (9 - 20 mg/dL) 21 H Creatinine (0.7 - 1.2 mg/dL) 0.9 Estimated GFR (>60 ml/min) > 60 BUN/Creatinine Ratio (7 - 25 %) 23.3 Hematology CBC w Diff NO MAN DIFF REQ WBC (4.8 - 10.8 /CUMM) 5.7 RBC (4.70 - 6.10 /CUMM) 3.52 L Hgb (14.0 - 18.0 G/DL) 10.5 L Hct (42 - 52 %) 31.0 L MCV (80.0 - 94.0 FL) 88.0 MCH (27.0 - 31.0 PG) 29.9 RDW (11.5 - 14.5 %) 14.4 Plt Count (130 - 400 /CUMM) 78 L MPV (7.4 - 10.4 FL) 10.6 H Gran % (42.2 - 75.2 %) 74.3 Lymphocytes % (20.5 - 51.1 %) 16.4 L Monocytes % (1.7 - 9.3 %) 7.8 Eosinophils % (0 - 5 %) 1.3 Basophils % (0.0 - 2.0 %) 0.2 Absolute Granulocytes (1.4 - 6.5 /CUMM) 4.3 Absolute Lymphocytes (1.2 - 3.4 /CUMM) 0.9 L Absolute Monocytes (0.10 - 0.60 /CUMM) 0.4 Absolute Eosinophils (0.0 - 0.7 /CUMM) 0.1 Absolute Basophils (0.0 - 0.2 /CUMM) 0 PUBS MCHC (33.0 - 37.0 G/DL) 34.0 ESR Westergren (0 - 10 MM) 63 H Last 24 Hours of Bharat Results: OR culture February 01 labeled left knee tissue positive for strep OR culture February 01 labeled left knee fluid remains negative Blood cultures 2 January 30 remain negative Assessment/Plan Impression: Stable status post irrigation and debridement of a left total knee arthroplasty with polyethylene exchange 2 days ago for an infected left knee prosthesis secondary to Group B strep. He remains afebrile with white blood cell count normal on Ampicillin, which will need to be continued for 6 weeks, followed by a 6 month course of oral antibiotics. His platelet count is increasing, suggesting the thrombocytopenia was secondary to sepsis. Suggestion: 1. Continue Ampicillin to complete a six-week course (until March 15), after which he will need to be switched to an oral regimen, likely a combination of 2 antibiotics, for another 6 months 2. Follow-up with me as an outpatient 3. Weekly ESR while on antibiotics
[2017-02-03 14:29] VITALS: BP 162/83
[2017-02-03 22:41] VITALS: BP 146/78
[2017-02-04 07:16] VITALS: BP 158/80
--- NOTE | 2017-02-04 08:10 | PN- Housestaff ---
JAHAIRA ODELL,KIM 02/04/17 0809: Subjective Follow-up For: Left knee septic arthritis, s/p Irrigation and debridement left total knee arthroplasty; Polyethylene exchange on 02/01/2017. Complaints: no complaints Subjective: Patient followed up by me today. He is not in distress, offers no complaints, vital signs stable, no overnight issues. Review of Systems Constitutional: Reports: no symptoms. Objective Last 24 Hrs of Vital Signs/I&O Vital Signs Date Time Temp Pulse Resp B/P B/P Pulse O2 O2 Flow FiO2 Mean Ox Delivery Rate 02/04 0716 98.4 74 18 158/80 91 Room Air 02/03 2241 98.0 80 20 146/78 92 Room Air 02/03 1429 98.4 90 20 162/83 91 Room Air 02/03 0930 80 132/70 Intake & Output 02/04 1600 02/04 0800 02/04 0000 Intake Total 400 Output Total 400 Balance 0 Intake, Oral 400 Output, Urine 400 Physical Exam General Appearance: Alert, Oriented X3, Cooperative, No Acute Distress Other Physical Findings: Skin No Rashes Skin Temp/Moisture Exam: Warm/Dry Lymphatic Cervical nl Cardiovascular Normal S1, Normal S2 Lungs Clear to Auscultation, Normal Air Movement Abdomen Normal Bowel Sounds, Soft, No Tenderness Neurological Grossly intact Extremities Left knee well dressed and is not tender, no soakage from the site; Right knee normal Vascular Normal Pulses, Pulses Symmetrical Current Medications: Current Medications Sig/Willi Start time Last Medication Dose Route Stop Time Status Admin Acetaminophen 1,000 MG Q8P PRN 02/01 0045 AC IV Amlodipine Besylate 10 MG DAILY 01/31 1000 AC 02/03 PO 0931 Ampicillin 2,000 MG Q6H 01/31 1800 AC 02/04 Sodium Chloride 100 ML IV 0554 Apixaban 5 MG BID 02/03 2200 AC 02/03 PO 213 Cholecalciferol 1,000 IU 01/31 AC 02/03 PO 213 Docusate Sodium 100 MG BID 01/30 2200 AC 02/02 PO 211 Ferrous Sulfate 325 MG BID 01/30 2200 AC 02/03 PO 213 Furosemide 60 MG QAM 01/31 1000 AC 02/03 PO 0931 Hydromorphone HCl 1 MG Q4P PRN 01/31 1030 AC IV Insulin Human Regular 6 UNITS .STK-MED ONE 02/03 1707 DC IV 02/03 1708 Insulin Human Regular 4 UNITS .STK-MED ONE 02/03 1149 DC IV 02/03 1150 Insulin Human Regular 0 TIDAC/HS 02/01 1700 AC 02/03 SC 1709 Lisinopril 40 MG DAILY 01/31 1000 AC 02/03 PO 0930 Melatonin 5 MG ONCE ONE 02/03 1830 DC 02/03 PO 02/03 1831 2133 Metoprolol Succinate 50 MG DAILY 01/31 1000 AC 02/03 PO 0931 Oxycodone HCl 5 MG Q6P PRN 02/01 0045 AC 02/04 PO 0554 Patient Medication 1 ED .STK-MED ONE 02/03 1316 DC Teaching ED 02/03 1317 Polyethylene Glycol 17 GM DAILY 01/31 1030 AC 01/31 PO 1339 Pravastatin Sodium 80 MG 22001/31 2200 AC 02/03 PO 2132 Senna/Docusate Sodium 1 TAB BID 01/31 1024 AC 02/02 PO 2118 Tamsulosin HCl 0.4 MG DAILY 01/31 1000 AC 02/03 PO 0930 Last 24 Hrs of Lab/Bharat Results Last 24 Hrs of Labs/Mics: Laboratory Tests 02/04/17 0545: Sodium Pending, Potassium Pending, Chloride Pending, Carbon Dioxide Pending, Anion Gap Pending, BUN Pending, Creatinine Pending, BUN/Creatinine Ratio Pending , CBC w Diff Pending, WBC Pending, RBC Pending, Hgb Pending, Hct Pending, MCV Pending, MCH Pending, RDW Pending, Plt Count Pending, MPV Pending, PUBS MCHC Pending Assessment/Plan Assessment: 82-year-old male with past medical history of atrial fibrillation on Eliquis, hypertension, hyperlipidemia, recurrent cellulitis, left knee replacement, followed by left knee septic arthritis requiring antibiotics and replacement of hardware, diabetes not on insulin, presented to the emergency department with sudden onset of fever, sweating, left knee pain/swelling/redness starting . He is currently being managed in the general medical floor for the following issues: # Sepsis, secondary to left septic arthritis, s/p Irrigation and debridement left total knee arthroplasty on 02/01/17 Patient underwent Irrigation and debridement left total knee arthroplasty yesterday and has been afebrile. He seem to be responding well to the antibiotics. * ID consultation appreciated. Will continue Ampicillin to cover the group B beta Streptococcus that grew on the left knee synovial fluid aspirate. * Patient should get IV ampicillin until March 15, 2017. Within that timeframe, patient should follow-up with Aung Yoder MD to discuss about long-term oral antibacterial therapy. Patient can be safely discharged home with health services today. * Patient has been working with PT and can go home with PT/health services when ready. #Thrombocytopenia, 2/2 sepsis Patient came in with a plt count of 97,000 which decreased to 73 and 53, which was attributed to septic state initially. But as the patient was responding well to the antibiotics as evident with WBC, Lactic acid, and clinically, it was expected to go further towards normal. But instead it is still significantly low , which prompts us to think of hematologic disorders rather than just sepsis. * per Hematology consultation, this is likely due to sepsis with a pattern of going up and down. Today's plt level is 99. * Dr Clemente, desk pens assembler has also suggested to consult Hematology service in case his plt numbers are still low, before starting Eliquis. * Patient clearly is not in DIC, ITP, HUS, nor was on heparin. #Diabetes mellitus Patient is on insulin sliding scale, regular Accu-Cheks and on diabetic diet. #New onset hypoxia, resolved #Rest of his home medication has been continued. #DVT prophylaxis was Eliquis until last night. Currently with ALPS. #Diet: diabetic diet #CODE STATUS is DNR/DNI Problem List: 1. Septic arthritis of knee, left 2. Thrombocytopenia 3. Diabetes Pain Ratin Pain Location: left knee Pain Goal: Pain 4 or less Pain Plan: prn Tomorrow's Labs & Rationales: - TONYVIGNESH EscobedoPERICO 02/04/17 1036: Attending MD Review Statement Attending Statement Attending MD Statement: examined this patient, discuss w/resident/PA/SECURITY REPRESENTATIVE, agreed w/resident/PA/SECURITY REPRESENTATIVE, discussed with family, reviewed EMR data (avail), discussed with nursing, discussed with case mgmt, reviewed images, amended to note Attending Assessment/Plan: Patient stable for discharge, CMR , d/c planning as per primary team.
[2017-02-04 08:30] LABS: ABSOLUTE BASOPHIL COUNT 0 /CUMM (0.0-0.2); ABSOLUTE EOSINOPHIL COUNT 0.2 /CUMM (0.0-0.7); ABSOLUTE GRANULOCYTE CT 3.2 /CUMM (1.4-6.5); ABSOLUTE MONOCYTE COUNT 0.5 /CUMM (0.10-0.60); BASOPHIL % 0.4 % (0.0-2.0); EOSINOPHIL % 3.3 % (0-5); GRANULOCYTE % 64.9 % (42.2-75.2); MEAN CORPUSCULAR HGB 29.6 PG (27.0-31.0); MEAN CORPUSCULAR HGB CONC 33.6 G/DL (33.0-37.0); MEAN CORPUSCULAR VOLUME 88.2 FL (80.0-94.0); MEAN PLATELET VOLUME 9.8 FL (7.4-10.4); RBC DISTRIBUTION WIDTH 14.1 % (11.5-14.5); RED BLOOD CELL CT 3.52 /CUMM (4.70-6.10)
[2017-02-04] MEDS ORDERED: OXYCODONE HCL5 M1 PO ×2 (09:26→09:27)
[2017-02-04 09:53] VITALS: BP 158/80
[2017-02-04 09:54] LABS: PLATELET COUNT 99 /CUMM (130-400)
--- NOTE | 2017-02-04 17:38 | Discharge Summary ---
Visit Information Visit Dates Admission Date: 01/30/17 Discharge Date: 02/04/17 Hospital Course Course Attending Physician: DOROTHEA ODELL,MERCY Vicente Primary Care Physician: KATHY AMAYA DO Hospital Course: Mr Cook is a pleasant 82-year-old male with past medical history of atrial fibrillation on Eliquis, hypertension, hyperlipidemia, recurrent cellulitis, left knee replacement, followed by left knee septic arthritis requiring antibiotics and replacement of hardware, diabetes mellitus on oral antihyperglycemics, presented to the emergency department with sudden onset of fever, sweating, left knee pain/swelling/redness starting 01/29/17. He was managed in the general medical floor for the following issues: # Sepsis, secondary to left septic arthritis, s/p Irrigation and debridement left total knee arthroplasty on 02/01/17 Patient was found to be in sepsis, secondary to prosthetic left knee septic arthritis. Left knee joint was aspitared and sample sent for analysis on the day of admission. He was managed aggressively with IV fluids, antibiotics, and underwent Irrigation and debridement of left knee arthroplasty by Dr Gregorio Whiteside (Orthopedic surgeon). He seem to be responding well to the antibiotics. ID service was consulted from the beginning and per ID, the patient should be continued on Ampicillin to cover the group B beta Streptococcus that grew on the left knee synovial fluid aspirate. Patient should get IV ampicillin until March 15, 2017. Within that timeframe, patient should follow-up with Marii Yoder MD to discuss about long-term oral antibacterial therapy as this has been a recurrent episode. Patient was safely discharged home with health services, including home PT service. His family members had been visiting him and are willing to provide care after the discharge. #Thrombocytopenia, 2/2 sepsis Patient came in with a plt count of 97,000 which decreased to 73 and 53, which was attributed to septic state. For persistant low platelet count, Hematology consultation was placed with Dr Abdiel Banuelos, who suggested that this is likely due to sepsis with a pattern of going up and down. At discharge, his platelet level was 99,000, and was thought to be safe level to be sent home. Eliquis was not started until Hematology consultation after the surgery. #Diabetes mellitus Patient was on insulin sliding scale, regular Accu-Cheks and on diabetic diet. #New onset hypoxia, without any obvious cause, which resolved after additional oxygen therapy, respiratory care and incentive spirometry. Possible cause could be post operative decreased ambulation. #Rest of his home medication has been continued. #DVT prophylaxis was with Eliquis after consulting Hematology. Other times, ALPS. #Diet: diabetic diet #CODE STATUS is DNR/DNI Allergies: Coded Allergies: No Known Allergies (01/30/17) Significant Procedures: Left knee aspiration on 01/30/2017; Irrigation and debridement left total knee arthroplasty;Polyethylene exchange on 02/01/2017. Pertinent Lab Results: Left knee aspirate on culture had scant growth of Beta Strep Group B (sample from 01/30/2017 and again during surgery on 02/01/2017). Disposition Summary Disposition Principal Diagnosis: Left knee septic arthritis Additional Diagnosis: atrial fibrillation on Eliquis, hypertension, hyperlipidemia, recurrent cellulitis, left knee replacement, followed by left knee septic arthritis requiring antibiotics and replacement of hardware, diabetes mellitus on oral antidiabetics. Discharge Disposition: home health services Discharge Instructions General Discharge Information Code Status: Do Not Resucitate/Intubat Patient's Diet: Diabetic diet Patient's Activity: As tolerated Follow-Up Instructions/Appts: Wound care as instructed. You have a PICC line (IV line) to receive antibiotics. Please get your antibiotics till March 15, 2017. Please get blood work - complete blood count (CBC) on Monday and the results to be sent to Dr nancy Clemente. Nurse can draw blood from PICC line. Follow-up with infectious disease doctor Marii Yoder MD within 2 weeks of discharge. Please get weekly blood test (ESR) and the results sent to Dr Yudelka oYder. Follow-up with orthopedics doctor Gregorio Whiteside MD within 1 week of discharge. Follow-up with your primary care physician within 2 weeks of discharge. Return to emergency if symptoms worsen. Medications at Discharge Discharge Medications: Continue taking these medications: Lisinopril (Lisinopril) 20 MG TABLET 1 Tablet ORAL Every Morning Comments: Last Taken: 02/04/17 Time: 1000 40mg given Metformin HCl (Glucophage) 1,000 MG TABLET 1 Tablet ORAL TWICE DAILY Comments: not given Furosemide (Furosemide) 20 MG TABLET 3 Tablet ORAL Every Morning Comments: Last Taken: 02/04/17 Time: 1000 Potassium Chloride (Potassium Chloride) 20 MEQ TAB.ER.PRT 1 Tablet ORAL Every Morning Comments: not given Cholecalciferol (Vitamin D3) (Vitamin D) 1,000 UNIT TABLET 1 Tablet ORAL DAILY Comments: DID NOT RECEIVE IN HOSPITAL Tamsulosin HCl (Flomax) 0.4 MG CAP.ER.24H 1 Capsule ORAL DAILY Comments: Last Taken: 02/04/17 Time: 1000 Linagliptin (Tradjenta) 5 MG TABLET 1 Tablet ORAL DAILY Comments: NOT GIVEN IN HOSPITAL Metoprolol Succinate (Metoprolol Succinate) 50 MG TAB.ER.24H 1 Tablet ORAL DAILY Comments: Last Taken: 02/04/17 Time: 9:15 AM Pravastatin Sodium (Pravachol) 80 MG TABLET 1 Tablet ORAL Every night Comments: Last Taken:02/03/17 Time:10pm Multivitamin,Ther and Minerals (Multivitamins With Minerals Hp) 1 EACH CAPSULE 1 Capsule ORAL Every Morning Comments: NOT GIVEN IN HOSPITAL Sennosides/Docusate Sodium (Senokot-S Tablet) 1 EACH TABLET 1 Tablet ORAL TWICE DAILY as needed for CONSTIPATION Qty = 30 Comments: not given Polyethylene Glycol 3350 (Miralax) 17 GM POWD.PACK 1 Packet ORAL DAILY as needed for CONSTIPATION Qty = 30 Instructions: dissolve in water Comments: not given Docusate Sodium (Colace) 100 MG CAPSULE 1 Capsule ORAL TWICE DAILY Qty = 14 Comments: not given Ferrous Sulfate (Ferrous Sulfate) 325 MG TABLET 1 Tablet ORAL TWICE DAILY Days = 60 Instructions: available over the counter Comments: Last Taken: 02/04/17 Time: 1000 Amlodipine Besylate (Norvasc) 10 MG TABLET 1 Tablet ORAL DAILY Comments: Last Taken:02/04/17 Time:1000 Lisinopril (Prinivil) 20 MG TABLET 1 Tablet ORAL Every night Comments: not given Start taking the following new medications: Oxycodone HCl (Oxycodone HCl) 5 MG TABLET 5 Milligram ORAL EVERY SIX HOURS NEEDED as needed for PAIN SCALE 4-6 ( MODERATE) Qty = 15 No Refills Ampicillin Sodium (Ampicillin Sodium) 2 GRAM VIAL.PORT 2 Gram INTRAVEN EVERY SIX HOURS Qty = 40 No Refills Instructions: PLEASE GET THE IV ANTIBIOTICS TILL March. Oxycodone HCl (Oxycodone HCl) 5 MG TABLET 2 Tablet ORAL EVERY SIX HOURS NEEDED as needed for SEVERE PAIN Qty = 30 No Refills Instructions: TAKE 2 TAB FOR SEVERE PAIN Comments: TWO TABS FOR SEVERE PAIN NEEDED Copies To: DAVID ODELL,GREGORIO; ABDIEL ODELL,HONG; ALESSANDRO ODELL,MARII Mohr; KATHY AMAYA DO
== END 2017-02-04 10:53 | disposition home health service (06) | DRG 466 ==
LOC: ERH 11:40 → 2NB 14:54 → ERHI 14:54 → ENRESERV 16:22 → ENTRNSPT 18:22 → EDTRNSPTTYP 18:43 → 2NB 18:51 → CMPTRNSPT 20:24 → 2NB 01-31 07:41
PROVIDERS: Emergency Medicine; Internal Medicine Nephrology; ADMIT Internal Medicine
PROC: 0S9D3ZX Drainage of Left Knee Joint, Percutaneous Approach, Diagnostic (ICD-10-PCS; 2017-01-30)
PROC: 0SBD0ZZ Excision of Left Knee Joint, Open Approach (ICD-10-PCS; principal; 2017-02-01)
PROC: 0SPW0JZ Removal of Synthetic Substitute from Left Knee Joint, Tibial Surface, Open Approach (ICD-10-PCS; 2017-02-01)
PROC: 0SRW0JA Replacement of Left Knee Joint, Tibial Surface with Synthetic Substitute, Uncemented, Open Approach (ICD-10-PCS; 2017-02-01)
DX: T84.54XA Infection and inflammatory reaction due to internal left knee prosthesis, initial encounter (principal); A40.1 Sepsis due to streptococcus, group B; E87.2 Acidosis; D69.6 Thrombocytopenia, unspecified; I50.30 Unspecified diastolic (congestive) heart failure; I48.91 Unspecified atrial fibrillation; E11.9 Type 2 diabetes mellitus without complications; Z79.01 Long term (current) use of anticoagulants; Z79.84 Long term (current) use of oral hypoglycemic drugs; E78.5 Hyperlipidemia, unspecified; N40.0 Benign prostatic hyperplasia without lower urinary tract symptoms; Z79.4 Long term (current) use of insulin; R09.02 Hypoxemia; I10 Essential (primary) hypertension
CPT/HCPCS: 87070; 87075; 36415; 82436; 87040; 87147; 93005; 93010; 96374; 96375; 97110-GO; 97116-GO; 97161-GP; 97530-GO; C1769; J0131; J0290; J1815; J1885; J1940; J3370; J7040; J7042